=== PATIENT | female | born 1950 | race Caucasian/White ===

== ENCOUNTER 2024-02-09 12:27 | Outpatient (AMB) | payer MEDICARE, SELFPAY ==
--- NOTE | 2024-02-09 12:48 | A.OFFVIS_ITS ---
Vital Signs 02/09/24 12:55 Height 5 ft 3 in Weight 138 lb 2 oz BMI 24.5 BP 118/62 Blood Pressure Location Rt brachial Position Sitting Respiration 16 Pulse 80 Pulse Source Pulse Oximeter Pulse Oximetry (%) 98 Oxygen Delivery Method Room Air Intake Visit Reasons: ENP-Action Tremors ? Parkinson Intake Note: New pt presents to the office for consultation for tremors and suspicion of Parkinson's. Commercial Credit Analyst Required: No Allergies acetaminophen [From Percocet] Allergy (Mild, Verified 02/09/24 12:50) Unknown oxycodone [From Percocet] Allergy (Mild, Verified 02/09/24 12:50) Unknown povidone-iodine [From Betadine] Allergy (Mild, Verified 02/09/24 12:50) Unknown Sulfa (Sulfonamide Antibiotics) Allergy (Mild, Verified 02/09/24 12:50) Unknown HPI Comments Details: 73y/o Right handed female comes for evaluation of tremors. she noticed tremors in her right hand about 1 year ago both at rest and posture. Now she has occasional tremors in her left hand as well. Her tremors are episodic and are worse at night.she has trouble writing, using utensils due to tremors. no problems with dressing showering turning in bed or walking. She loses her balance more than she is used to.No falls. Speech-voice if softer hoarse. she denies drooling she has mild memory issues , mainly short term. she has insomnia sometimes. No vivid dreams. she snores often. Mood- depression - sad most of the time. No suicidal thoughts. she also has anxiety. she has occasional dizziness. Bowel movements are irregular.No hallucination No fh/o parknsons tremors Her mother had dementia at age 98.No h/o head injury No exposure to chemicals [facility] Medical History (Updated 02/09/24 @ 13:32 by Jeane Dimas MD) Hoarseness of voice Coarse tremors Hypersomnia Snoring Back pain Lacunar infarction Hypercholesteremia Hyperlipidemia Seizure Syncope Hypoglycemia Depression GERD (gastroesophageal reflux disease) Anxiety disorder Surgical History History of appendectomy H/O foot surgery H/O lumpectomy Family History Mother Dementia Father CAD (coronary artery disease) Arthritis Daughter Stroke Social History Alcohol intake: current Comment: 1-2 drinks per week Patient Tobacco Use Status: Never used Tobacco Physical Exam Vital Signs: Last Vital Signs Pulse 80 02/09/24 12:55 Resp 16 02/09/24 12:55 BP 118/62 02/09/24 12:55 Pulse Ox 98 02/09/24 12:55 Oxygen Delivery Method Room Air 02/09/24 12:55 BMI result Body Mass Index 24.5 Const General: cooperative, healthy appearing, comfortable, no acute distress and well developed Nutritional Appearance: average body habitus Orientation/consciousness: patient oriented x3 Limitations: no limitations Eyes Pupils: Equal, round and reactive pupils present Neuro Other: mild decreased blink and facial expression No tremors noticed today Mildly decreased FFM lizy and foot taps lizy Tone- normal Gait- mild stoop, good stride and arm swings General: patient oriented x3, tone normal, moves all extremities and no focal motor deficits Cranial nerves: Yes Facial sensation intact/muscles of mastication intact, Yes Equal, round and reactive pupils present, Yes Bilaterally intact EOM present, Yes Nystagmus not present, Yes Normal facial strength present, Yes Midline tongue present, Yes Symmetric palate elevation present, Yes Ability to bilaterally rotate head present and Yes Ability to bilaterally elevate shoulders present Cognition (Neuro): normal cognition Motor exam (neuro): 5/5 motor strength present throughout and Normal motor muscle tone present throughout Deep tendon reflexes (DTR's): Right triceps reflex intensity grade: 2+, Left triceps reflex intensity grade: 2+, Rt Biceps (C5, C6): 2+, Left biceps reflex intensity grade: 2+, Right brachioradialis reflex intensity grade: 2+, Left brachioradialis reflex intensity grade: 2+, Right patellar reflex intensity grade: 3+ and Left patellar reflex intensity grade: 3+ Coordination: [id number] test normal Psych Affect: normal affect Assessment & Plan Assessment & Plan (1) Coarse tremors: Comment: intermittent asymmetrical tremors - rest and action with mild extrapyramidal symptoms Code(s): G25.2 - Other specified forms of tremor Category: Medical (2) Snoring: Code(s): R06.83 - Snoring Category: Medical (3) Hoarseness of voice: Code(s): R49.0 - Dysphonia Category: Medical Plan No signs of parkinsons on todays exam . will monitor her clincially MRI brain to evaluate for vascular causes of her tremors Sleep study to r/o sleep apnea. Orders: Orders MR head/brain wo con Today R25.1 - Tremor, unspecified RT home sleep study Today G47.10 - Hypersomnia, unspecified, R06.83 - Snoring Coding Level of Care Code New Pt Level 4 (35998) Diagnoses Coarse tremors G25.2 Snoring R06.83 Hoarseness of voice R49.0
[2024-02-09 12:55] VITALS: BP 118/62; PULSE 80; RESP 16; O2SAT 98; BMI 24.5
== END 2024-02-09 13:31 | disposition home or self-care (01) ==
PROVIDERS: PCP Internal Medicine; Visit Provider Psychiatry & Neurology Neurology
DX: G25.2 Other specified forms of tremor (principal); R06.83 Snoring; R49.0 Dysphonia
CPT/HCPCS: 99204

== ENCOUNTER → 2024-02-09 12:27 | Outpatient (BNVA) | payer MEDICARE, SELFPAY | PROVIDERS: PCP Internal Medicine; Visit Provider Psychiatry & Neurology Neurology | DX: G25.2 Other specified forms of tremor (principal); R06.83 Snoring; R49.0 Dysphonia | CPT/HCPCS: 99202 ==

== ENCOUNTER 2024-07-14 15:16 | Outpatient (AMB) | payer MEDICARE, SELFPAY ==
--- OUTSIDE RECORDS SUMMARY | 2024-07-14 15:19 | XMS_ITS | Encounter Summary ---
Author Organization [facility] Address [address] [place] [address] Care Team Providers Care Toll Line Inspector Name Role Phone Elma Calhoun MD Primary Care Provider [phone] Reason for Visit * Reason Comments GERD Encounter Details Date Type Department Care Team (Latest Contact Info) Description 07/04/2024 1:00 PM EST Office Visit Gastroenterology - [address] [place] [address] Rosanne Batres, WINDSURFING INSTRUCTOR [address] [place] [place] [id number] Gastroesophageal reflux disease, unspecified whether esophagitis present (Primary Dx) Social History Tobacco Use Types Packs/Day Years Used Date Smoking Tobacco: Never Smokeless Tobacco: Never Alcohol Use Standard Drinks/Week Comments Yes 0 (1 standard drink = 0.6 oz pur e alcohol) Comments Unknown Sex and Gender Information Value Date Recorded Sex Assigned at Not on file Legal Sex Female 2:21 PM EST Gender Identity Not on file Sexual Orientation Not on file documented as of this encounter Last Filed Vital Signs Vital Sign Reading Time Taken Comments Blood Pressure - - Pulse - - Temperature - - Respiratory Rate - - Oxygen Saturation - - Inhaled Oxygen Concentration - - Weight 62 kg (136 lb 9.6 oz) 07/04/2024 1:04 PM EST Height 161.3 cm (5' 3.5 ) 07/04/2024 1:04 PM EST Body Mass Index 23.82 07/04/2024 1:04 PM EST documented in this encounter Ordered Prescriptions Prescription Sig Dispense Quantity Refills Last Filled Start Date End Date pantoprazole (PROTONIX) 40 mg EC tabletIndications: Gastroesophageal reflux disease, unspecified whether esophagitis present Take 1 tablet (40 mg total) by mouth 2 (two) times a day. Do not crush, chew, or split. 60 each 11 07/04/2024 07/04/2025 documented in this encounter Progress Notes * Rosanne Johnson Medardo, WINDSURFING INSTRUCTOR - 07/04/2024 1:00 PM EST CHIEF COMPLAINT: GERD DATE OF LAST ENDOSCOPIC PROCEDURES: 08/2022 UGI negative 02/2019 Colonoscopy 10 yr recall 02/2019 EGD negative HPI: Michelle Whitmore is a 74 y.o. old female who was originally referred to us by Rhea Snow presents to the gastroenterology department today stating my acid reflux is atrocious.. She tells me she has a sore throat all the time. Saw ENT and had negative exam and was told to see us. She has daily heartburn despite taking Omeprazole twice daily. I dont think it works anymore . She does take Aleve 2-3 times a week and drinks lemonaide daily. We discussed a relux diet and I made some suggestions for her. Her weight is stable. Her bowels are regular and she denies rectal bleeding or melena. ROS: GENERAL: No malaise, significant weight loss or fever HEENT: No changes in hearing or vision or swallowing problems RESPIRATORY: No cough, wheezing or shortness of breath CARDIOVASCULAR: No chest pain, leg swelling or palpitations GI: See H&P The remainder of the review of systems is reviewed and negative. PAST MEDICAL HISTORY: GERD IBS Anxiety/depression Hyperlipidemia PAST SURGICAL HISTORY: Foot surgery SOCIAL HISTORY: No tobacco Occas EtOH FAMILY HISTORY: No CRC/ polyps ACTIVE MEDICATIONS: Omeprazole 20mg BID Aleve II approx 3 X weekly Ativan 0,5 prn Zoloft 200mg QD Simvastatin 10mg QD Trazodone 150mg QHS ALLERGIES: Allergies Allergen Reactions Sulfa (Sulfonamide Antibiotics) HIves PHYSICAL EXAM: Visit Vitals Ht 1.613 m (63.5 ) Wt 62 kg (136 lb 9.6 oz) BMI 23.82 kg/m?? Smoking Status Never BSA 1.65 m?? APPEARANCE: Alert and in no acute distress EYES: PERRLA, conjunctiva and sclera normal. HEART: RRR with normal S1 and S2, no murmurs appreciated LUNG: clear to auscultation ABDOMEN: nontender without masses NEURO: Awake, alert and oriented x 3 Assessment & Plan Gastroesophageal reflux disease, unspecified whether esophagitis present Change PPI to Pantoprazole 40mg BID Stop lemonaide OV 4 weeks EGD if no better Orders: pantoprazole (PROTONIX) 40 mg EC tablet; Take 1 tablet (40 mg total) by mouth 2 (two) times a day. Do not crush, chew, or split. I would like to thank Elma Calhoun MD for the opportunity to partake in the patient's care. Board Certified Gastroenterology [facility] [phone] [place] [id number] [email or web address] Rosanne Batres NP documented in this encounter Plan of Treatment Upcoming Encounters Date Type Department Care Team (Late st Contact Info) Description 08/02/2024 11:00 AM EDT Office Visit Gastroenterology - [address] [address] Rosanne Batres NP [address] [place] [address] documented as of this encounter Visit Diagnoses Diagnosis Gastroesophageal reflux disease, unspecified whether esophagitis present- Primary documented in this encounter Care Teams Toll Line Inspector Relationship Specialty Start Date End Date Elma Calhoun MD [address] [place] [id number] PCP - General Internal Medicine 07/10/21 documented as of this encounter
--- OUTSIDE RECORDS SUMMARY | 2024-07-14 15:19 | XMS_ITS | Clinical Summary ---
Author Organization [facility] Address [address] [place] [address] Care Team Providers Care Supervisor Contingents Name Role Phone Elma Calhoun MD Primary Care Provider [phone] Allergies Active Allergy Reactions Criticality Noted Date Comments Sulfa Antibiotics 07/10/2021 Medications Medication Sig Dispensed Refills Start Date End Date Status LORazepam (ATIVAN) 1 MG tablet TAKE 1 TABLET BY MOUTH TWICE DAILY NEEDED FOR ANXIETY. WILL LAST PATIENT FOR 6 MONTHS 0 04/15/2021 Active omeprazole (PriLOSEC) 20 MG capsule 0 07/09/2021 Active Scopolamine (TRANSDERM-SCOP) 1 MG/3DAYS PLACE 1 PATCH BEHIND EAR EVERY 72 HOURS 0 05/09/2021 Active sertraline (ZOLOFT) 100 MG tablet 0 07/09/2021 Active simvastatin (ZOCOR) tablet 5 mg 0 07/09/2021 Active traZODone (DESYREL) 150 MG tablet 0 07/09/2021 Active Active Problems No known active problems Social History Tobacco Use Types Packs/Day Years Used Date Smoking Tobacco: Never Smokeless Tobacco: Never Alcohol Use Standard Drinks/Week Comments Yes 0 (1 standard drink = 0.6 oz pur e alcohol) Sex and Gender Information Value Date Recorded Sex Assigned at Female 07/10/2021 9:48 AM EST Gender Identity Female 07/10/2021 9:48 AM EST Sexual Orientation Not on file Job Start Date Occupation Industry Not on file Not on file Not on file Last Filed Vital Signs Vital Sign Reading Time Taken Comments Blood Pressure - - Pulse - - Temperature - - Respiratory Rate - - Oxygen Saturation - - Inhaled Oxygen Concentration - - Weight 60.3 kg (133 lb) 07/10/2021 9:44 AM EST Height 162.6 cm (5' 4 ) 07/10/2021 9:44 AM EST Body Mass Index 22.83 07/10/2021 9:44 AM EST Plan of Treatment Health Maintenance Due Date Last Done Comments Hepatitis C Screening 1950 COVID-19 Vaccine (#1) 1950 Depression Screening 1962 Preventative Health Evaluation 1968 DTap / Tdap / Td (1 - Tdap) 1969 Colon Cancer Screening (Colonoscopy) 1995 Breast Cancer Screening (Mammogram) 2000 Shingrix-Zoster Vaccine (1 of 2) 2000 Fall Risk Assessment 2015 Osteoporosis Screening (DEXA Scan) 2015 Pneumococcal Vaccine (1 of 1 - PCV) 2015 Influenza Vaccine (#1) 2024 RSV Adult > 60+ Yrs or Pregn ant (1 - 1-dose 75+ series) 2025 Hepatitis B Vaccines Aged Out No long er eligible based on patient's age to complete this topic RSV Ped < 20 months Aged Out No longe r eligible based on patient's age to complete this topic Care Teams Supervisor Contingents Relationship Specialty Start Date End Date Elma Calhoun MD [address] [address] PCP - General Internal Medicine 07/10/21
--- OUTSIDE RECORDS SUMMARY | 2024-07-14 15:19 | XMS_ITS | Clinical Summary ---
Author Organization [facility] [address] [facility] Address [address] [place] [address] Phone Care Team Providers Care Cognos Administrator Name Role Phone Elma Calhoun MD Primary Care Provider [phone] Allergies Active Allergy Reactions Criticality Noted Date Comments Sulfa (Sulfonamide Antibiotics) 07/23 HIves Medications traZODone (DESYREL) 150 mg tablet Take 1 tablet (150 mg total) by mouth at bedtime. 0 Active simvastatin (ZOCOR) 10 mg tablet Take 1 tablet (10 mg total) by mouth at bedtime. 9 Active omeprazole (PriLOSEC) [address] capsule Take 1 capsule (20 mg total) by mouth 2 (two) times a day. 9 Active LORazepam (ATIVAN) 0.5 mg tablet Sig: TAKE 1 TABLET BY MOUTH TWICE A DAY Notes to Pharmacy: This request is for a new prescription for a controlled substance as required by Federal/State law. 9 Active sertraline (ZOLOFT) 100 mg tablet Take 2 tablets (200 mg total) by mouth 1 (one) time each day. 9 Active simvastatin (ZOCOR) 5 mg tablet Take 5 mg by mouth daily. Active pantoprazole (PROTONIX) 40 mg EC tabletIndicatio ns:Gastroesopha geal reflux disease, unspecified whether esophagitis present Take 1 tablet (40 mg total) by mouth 2 (two) times a day. Do not crush, chew, or split. 60 each 11 07/04/19 26 Active Active Problems Problem Noted Date Diagnosed Date Anxiety 08/16/2018 Gastroesophageal reflux disease without esophagi tis 08/16/2018 Pure hypercholesterolemia 08/16/2018 Encounters Date Type Department Care Team Description 07/04/2024 1:00 PM EST Office Visit Gastroenterology - [address] [place] [phone] Rosanne Batres NP Gastroesophageal reflux disease, unspecified whether esophagitis present (Primary Dx) from Last 3 Months Surgical History Surgery Date Site/Laterality Comments FOOT SURGERY PROCEDURE:FOOT SURGERY Social History Tobacco Use Types Packs/Day Years Used Date Smoking Tobacco: Never Smokeless Tobacco: Never Alcohol Use Standard Drinks/Week Comments Yes 0 (1 standard drink = 0.6 oz pur e alcohol) Comments Unknown Sex and Gender Information Value Date Recorded Sex Assigned at Not on file Legal Sex Female 2:21 PM EST Gender Identity Not on file Sexual Orientation Not on file Obstetrics History Last Filed Vital Signs Vital Sign Reading Time Taken Comments Blood Pressure - - Pulse - - Temperature - - Respiratory Rate - - Oxygen Saturation - - Inhaled Oxygen Concentration - - Weight 62 kg (136 lb 9.6 oz) 07/04/2024 1:04 PM EST Height 161.3 cm (5' 3.5 ) 07/04/2024 1:04 PM EST Body Mass Index 23.82 07/04/2024 1:04 PM EST Plan of Treatment Upcoming Encounters Date Type Department Care Team (Late st Contact Info) Description 08/02/2024 11:00 AM EDT Office Visit Gastroenterology - [address] [place] [phone] Rosanne Batres NP [address] [place] [address] Health Maintenance Due Date Last Done Comments Zoster Vaccines (2 of 2) 03/31/2018 02/03/2018 Breast Cancer Screening 11/29/2020 11/29/2018, 11/22 Depression Screening 04/22/2022 Falls Risk Assessment 04/22/2022 Hepatitis C Screening 04/22/2022 Medicare Annual Wellness Visit 04/22/2022 Osteoporosis Screening (Bone Density Screening) 04/22/2022 Social Influencers of Health Screening 04/22/2022 Cholesterol Screening (Lipid Panel) 08/17/2023 08/16/2018 Colorectal Cancer Screening: Colonoscopy 02/23/2029 02/23/2019, 02/23/2019 DTaP,Tdap,and Td Vaccines (2 - Td or Tdap) 07/07/2033 07/07/2023 Pneumococcal Vaccine: 50+ Years Completed 07/07/2023, 06/21/2019 RSV Immunization Patients 60+ Years Old Completed 08/12/2023 COVID-19 Vaccine Completed 01/31/2024, , 02/09/2022, Additional history exists Influenza Vaccine Completed 03/01/2024, , 03/04/2022, Additional history exists HIB Vaccines Aged Out No longer eligi ble based on patient's age to complete this topic HPV Vaccines Aged Out No longer eligi ble based on patient's age to complete this topic Hepatitis A Vaccines Aged Out No long er eligible based on patient's age to complete this topic Hepatitis B Vaccines Aged Out No long er eligible based on patient's age to complete this topic IPV Vaccines Aged Out No longer eligi ble based on patient's age to complete this topic MMR Vaccines Aged Out No longer eligi ble based on patient's age to complete this topic Meningococcal ACWY Vaccine Aged Out N o longer eligible based on patient's age to complete this topic Meningococcal B Vacine Aged Out No lo nger eligible based on patient's age to complete this topic RSV Immunization Patients Under 20 months Aged Out No longer eligible based on patient's age to complete this topic Varicella Vaccines Aged Out No longer eligible based on patient's age to complete this topic Procedures Procedure Name Priority Date/Time Associated Diagnosis Comments COLONOSCOPY Routine 02/23/2019 [facility] SCREENING DIGITAL Routine 11/29/2018 11:14 AM EDT Encounter for screening mammogram for malignant neoplasm of breast LIPID PANEL Routine 08/16/2018 from Last 3 Months or Most Recently Relevant to Health Maintenance Results * Colonoscopy (02/23/2019) HM Colonoscopy abnormal, abstracted Anatomical Region Laterality Modality Other us Historical Provider HEALTH MAINTENANCE Final Result * [facility] SCREENING DIGITAL (11/29/2018 11:14 AM EDT) Anatomical Region Laterality Modality Mammography 11/29/2018 8:55 AM EDT Narrative 11/29/2018 11:14 AM EDT [facility] Diagnostic Imaging Department [address] [place], [place] [id number] Patient: ??MICHELLE WHITMORE ?/Age/Sex: 1950 - 68 - F Unit#: ??[id number] ? Location/Status: ??SPDIMAM/REG CLI ? Mnemonic/Ordering Site: ??DIGSC/SPMAM Ordering Physician: ??DUSTIN ROJO MD [facility] Screening Digital - 11/29/[address]12 EXAM: [facility] Screening Digital EXAM DATE AND TIME: 11/29/2018 9:14 AM HISTORY: ??Screening. Excisional biopsy of the left breast in 1993, pathology benign. Paternal grandmother had breast carcinoma. COMPARISON: ??11/26/17 (right), 11/22/17, 11/19/16, 02/13/15, 11/10/13 TECHNIQUE: CC and MLO views of both breasts were obtained using full field digital mammography. Bilateral digital breast tomosynthesis was performed in the MLO projection. Computer aided detection with the [employer] 7.2-H was employed. TISSUE DENSITY: b. There are scattered areas of fibroglandular density. FINDINGS: Minimal asymmetry and architectural distortion are seen in the posterior 10:00 position of the left breast, unchanged, consistent with surgical scar. No suspicious masses or grouped microcalcifications are seen. Dermal and vascular calcification is again noted. IMPRESSION: Stable mammographic appearance of the breasts. ??No evidence of malignancy is seen. A negative mammogram in the presence of a clinically suspicious palpable abnormality does not preclude the possibility of malignancy or alter the indications for biopsy. BI-RADS: ??Category 2: Benign RECOMMENDATION(S): 1: Routine screening mammogram BILATERAL in 1 year. 79846, 82114 3342F, 7065F Dictating Physician: ??VIOLA NICHOLS MD Electronically Signed by: ??VIOLA NICHOLS MD Dic Date/Time: ??11/29/18 1113 Sign date/Time: ??11/29/18 1114 Procedure Note Viloa Nichols - 05/13/2022 [facility] Diagnostic Imaging Department [address] [place] [address] Patient: MICHELLE WHITMORE/Age/Sex: 1950 - 68 - F Unit#: [id number] Location/Status: SPDIMAM/REG CLI Mnemonic/Ordering Site: [facility] Ordering Physician: DUSTIN ROJO MD [facility] Screening Digital - 11/29/18 - 912 EXAM: [facility] Screening Digital EXAM DATE AND TIME: 11/29/2018 9:14 AM HISTORY: Screening. Excisional biopsy of the left breast in 1993,pathology benign. Paternal grandmother had breast carcinoma. COMPARISON: 11/26/17 (right), 11/22/17, 11/19/16, 02/13/15, 11/10/13 TECHNIQUE: CC and MLO views of both breasts were obtained using fullfield digital mammography. Bilateral digital breast tomosynthesis was performedin the MLO projection. Computer aided detection with the [employer] 7.2[employer] Technology[employer] employed. TISSUE DENSITY: b. There are scattered areas of fibroglandular density. FINDINGS: Minimal asymmetry and architectural distortion are seen in the [id number] position of the left breast, unchanged, consistent with surgical scar. No suspicious masses or grouped microcalcifications are seen. Dermal and vascular calcification is again noted. IMPRESSION: Stable mammographic appearance of the breasts. No evidence of malignancyis seen. A negative mammogram in the presence of a clinically suspicious palpable abnormality does not preclude the possibility of malignancy or alter the indications for biopsy. BI-RADS: Category 2: Benign RECOMMENDATION(S): 1: Routine screening mammogram BILATERAL in 1 year. [id number], [address]323 3342F, 7025F Dictating Physician: VIOLA NICHOLS MD Electronically Signed by: VIOLA NICHOLS MD Dic Date/Time: 11/29/18 1113 Sign date/Time: 11/29/18 1114 Dustin Rojo MD IMG BI PROCEDURES Final Result * (ABNORMAL) Lipid panel (08/16/2018) LDL/HDL Ratio 3 0 - 4 Triglycerides 90 0 - 150 mg/dL Cholesterol 209(A) 0 - 200 mg/dL HDL 76 >=40 mg/dL LDL Cholesterol 115(A) 0 - 100 mg/dL Blood Venous blood specimen / Unknown Historical Provider LAB BLOOD ORDERABLES Sally l Result from Last 3 Months or Most Recently Relevant to Health Maintenance Insurance MEDICARE [facility] Care Teams Cognos Administrator Relationship Specialty Start Date End Date Elma Calhoun MD [address] [place] [address] [place] [address] PCP - General Internal Medicine 07/10/21
--- OUTSIDE RECORDS SUMMARY | 2024-07-14 15:19 | XMS_ITS | Data Portability ---
Author Organization [place] - [facility], Allergy Address [address] [address] Care Team Providers Care Barge Worker Name Role Phone MIREYA LIANG Primary Care Provider Assessment Encounter Date Assessment Date Assessment LastModified by Organization Details LastModified Time 06/16/2024 06/16/2024 74-year-old female presents for evaluation of hoarseness. Flexible laryngoscopy was obtained today and is most consistent with reflux with some muscle tension. I have discussed that reflux is likely the root of her irritation and hoarseness. As she continues to have breakthrough reflux despite twice daily omeprazole would recommend follow-up with GI. We also discussed voice therapy for muscle tension and she is interested in pursuing this option. Referral will be made. Follow-up here as needed. sherie Not available 06/16/2024 14:10:32 Plan of Treatment Reminders Order Date Submit Date Provider Last Modified By Organization Details Last Modified Time Details Appointments None recorded . Lab None recorded . Referral speech language patholog ist referral 2024 025 [facility], [address] [facility], [place], [address], 13:42:34 Procedures None recorded . Surgeries None recorded . Imaging None recorded . Medication Orders None recorded . Patient TargetsNo targets recorded. Patient InstructionsNo instructions recorded. Reason for Referral Speech Language Pathologist Referral for Chronic hoarseness Referring Physician: Cindy Loredo, Otolaryngology, Encounter Date: 06/16/2024 Problems Name Problem SNOMED Code Status Onset Date Resolution Date Notes Provider Name and Address Organization Details Recorded Time Chronic rhinitis 94824690 Active 2021 Obstructi ve rhinitis (chronic) ; Note: Date Diagnosed : 2 3:28 PM (J31.0) Not Available [facility] 4 02:55:57 Sensorine ural hearing loss of bilateral ears 940590586 Active 2021 Sensorine ural hearing loss, bilateral ; Note: Date Diagnosed : 2 3:51 PM (H90.3) Not Available [facility] 4 02:55:58 Allergic rhinitis caused by pollen 12327236 Active 2021 Allergic rhinitis due to pollen; Note: Date Diagnosed : 2 3:28 PM (J30.1) Not Available [facility] 4 02:55:57 Sudden idiopathi c hearing loss 921536900 Active 2017 Sudden idiopathi c hearing loss, left ear; Note: Date Diagnosed : 11/11/2017 12:13 PM (H91.22) Not Available [facility] 4 02:55:57 Chronic hoarsenes s 09541001811 05 Active 2024 CINDY LOREDO PA-C [address] [place] [address],[place] [address], [place], [address] , [facility] 5 14:10:42 Gastroeso phageal reflux disease without esophagit is 621646499 Active 2024 CINDY LOREDO PA-C [address] [place] [address], [facility] [place], [address] , [facility] 5 14:10:49 Problem Notes None recorded. Procedures Surgical History Date Name Laterality Status Provider Name and Address Organization Details Recorded Time 06/16/2024 FOL_Reflux _JMS completed CINDY LOREDO PA-C [address] [place] [address],[place] [address], [place], [address], [facility] 06/16/2024 14:09:40 Imaging Results None recorded. Procedure Notes None recorded. Medical Equipment None Reported. Allergies Allergen ID Allergen Name Allergen Category Reaction Reaction Severity Criticality Documentation Date Start Date Code Code System Note Provider Name and Address Organization Details Recorded Time 056641 Substance with sulfonami de structure and antibacte rial mechanism of action (substanc e) medicatio n other Not available Not available 10/05/2023 10752 8003 SNOMED React ion: unkno wn, unspe cifie d;; Not Available [facility] 4 01:19:30 Medications Name Sig Start Date Stop Date Status Note LastModified by Organization Details LastModified Time amoxicilli n 500 mg capsule TAKE 1 CAPSULE BY MOUTH 3 TIMES A DAY UNTIL GONE active Not Available Not Available No t Available prednisone 10 mg tablet 2017 active Medicatio n ID: [id number] Pr escribed By Name: Lili Tomas, CAMILA-[place] Bran d Name: prednison e Send Method: E-Prescri bed Subs Allowed: subs OK Specia l Instructi on: 6 tabs daily for 9 days then taper As directed Medicatio nGenericN ann-marie: prednison e Not Available Not Available Not Available valacyclov ir 1 gram tablet TAKE 1 TABLET BY MOUTH 3 TIMES A DAY FOR 7 DAYS active Not Available Not Available No t Available betamethas one, augmented 0.05 % topical cream PLEASE SEE ATTACHED FOR DETAILED DIRECTION S active Not Available Not Available No t Available sertraline 100 mg tablet TAKE 1 TABLET BY MOUTH TWICE A DAY active Not Available Not Available No t Available simvastati n 10 mg tablet TAKE 1 TABLET BY MOUTH EVERYDAY AT BEDTIME active Not Available Not Available No t Available trazodone 100 mg tablet TAKE 2 TABLETS BY MOUTH EVERY DAY AT BEDTIME active Not Available Not Available No t Available simvastati n 5 mg tablet TAKE 1 TABLET BY MOUTH EVERYDAY AT BEDTIME active Not Available Not Available No t Available cephalexin 500 mg capsule TAKE 1 CAPSULE BY MOUTH 4 TIMES A DAY FOR 7 DAYS active Not Available Not Available No t Available trazodone 150 mg tablet TAKE 1 TABLET BY MOUTH EVERYDAY AT BEDTIME active Not Available Not Available No t Available oseltamivi r 75 mg capsule TAKE 1 CAPSULE BY MOUTH TWICE A DAY FOR 5 DAYS active Not Available Not Available No t Available omeprazole 20 mg capsule,de layed release TAKE 1 CAPSULE BY MOUTH TWICE A DAY active Not Available Not Available No t Available lorazepam 1 mg tablet TAKE 1 TABLET DAILY AT BEDTIME NEEDED FOR INSOMNIA AND ANXIETY active Not Available Not Available No t Available ibuprofen 600 mg tablet TAKE 1 TABLET 4 TIMES A DAY WITH MEALS NEEDED active Not Available Not Available No t Available ipratropiu m bromide 21 mcg (0.03 %) nasal spray USE 1 SPRAY IN EACH NOSTRIL DAILY AT BEDTIME X 14 DAYS NEEDED FOR NASAL CONGESTIO N active Not Available Not Available No t Available oxycodone 5 mg tablet TAKE 1 TABLET EVERY 6 HOURS NEEDED FOR BREAKTHRO UGH PAIN. active Not Available Not Available No t Available chlorhexid ine gluconate 0.12 % mouthwash RINSE MOUTH WITH 15ML (1 CAPFUL) FOR 30 SECONDS IN MORNING AND EVENING AFTER BRUSHING, THEN SPIT active Not Available Not Available No t Available Nurtec ODT 75 mg disintegra ting tablet TAKE 1 TABLET ONCE NEEDED FOR MIGRAINE HEADACHE active Not Available Not Available No t Available Vitals None Recorded Social History None recorded. Functional Status None recorded. Mental Status None recorded. Family History Nothing Reported. Medical History No medical history recorded. Gynecological HistoryNo gynecological history recorded. Obstetrics History GPAL:G 0 P 0 0 0 0 Past Encounters Encounter ID Performer Location Encounter Start Date Encounter Closed Date Diagnosis/Indication Diagnosis SNOMED-CT Code Diagnosis ICD10 Code Diagnosis Note [id number] SHAMA HOLT MD [facility] [address] [address] 06/16/2024 13:23:26 06/16/2024 13:46:55 Chronic hoarseness 8626435516 105 R49.0 Gastroesop hageal reflux disease without esophagitis 950570522 K21.9 Health Concerns Section Related Observation LastModified by Organization Detai ls LastModified Time None Recorded Concern Status LastModified by Organization Details LastModified Time None Recorded Advance Directives Directive None Recorded Payers Encounter Date Sequence Insurance Name Policy Number Policy Key Covered Member ID Key Member ID Guarantor Name 06/16/2024 1 [place] Michelle Whitmore [id number] Michelle Whitmore 06/16/2024 2 [place] [id number] Michelle Whitmore [id number] Michelle Whitmore Notes Date Note Type Note Provider Name and Address Organization Details Recorded Time 06/16/2024 text/html 74-year-old lópez thompson presents for evaluation of hoarseness. She has been having worsening hoarseness over the last 6 months to a year. She does not have sore throat but does feel some irritation with swallowing. It seems as though food gets stuck in her lower throat. No history of tobacco use and no hemoptysis. Denies weight loss. Does have significant reflux. She takes omeprazole 20 mg twice daily but continues to have breakthrough symptoms. She reports coughing which is worse at night and nonproductive. Is seen regularly by GI and has had endoscopy. SHAMA AGUIRRE MD [address] [place] [address], [address], [facility] - [facility] 06/16/2024 15:47:32 OBGyn Episode No OBEpisode recorded.
--- OUTSIDE RECORDS SUMMARY | 2024-07-14 15:20 | XMS_ITS | Continuity of Care Document ---
Author Organization [place] - [facility], [facility] Address [address] [place] [address] Care Team Providers Care Dance Hall Host/Hostess Name Role Phone MIREYA LIANG Primary Care [...] speech language patholog ist referral 2024 025 [facility], [address] [place], [address], 13:42:34 Procedures None recorded . Surgeries None [...] Address Organization Details Recorded Time Chronic rhinitis 94344107 Active 2021 Obstructi ve rhinitis (chronic) ; Note: Date Diagnosed : 2 3:28 PM (J31.0) Not Available [facility] 4 02:55:57 Sensorine ural hearing loss of bilateral ears 601300054 Active 2021 Sensorine ural hearing loss, bilateral ; Note: Date Diagnosed : 2 3:51 PM (H90.3) Not Available [facility] 4 02:55:58 Allergic rhinitis caused by pollen 74484812 Active 2021 Allergic rhinitis due to pollen; Note: Date Diagnosed : 2 3:28 PM (J30.1) Not Available [facility] 4 02:55:57 Sudden idiopathi c hearing loss 569984970 Active 2017 Sudden idiopathi c hearing loss, left ear; Note: Date Diagnosed : 11/11/2017 12:13 PM (H91.22) Not Available [facility] 4 02:55:57 Chronic hoarsenes s 03802809488 05 Active 2024 CINDY LOREDO PA-C [address] [place] [address], [place], [address] , [facility] 5 14:10:42 Gastroeso phageal reflux disease without esophagit is 247296423 Active 2024 CINDY LOREDO PA-C [address] [place] [address],[place] [address], [place], [address] , [facility] 5 14:10:49 Problem Notes None recorded. Procedures Surgical History Date Name Laterality Status Provider Name and Address Organization Details Recorded Time 06/16/2024 FOL_Reflux _JMS completed CINDY LOREDO PA-C [address] [place] [address],[place] [address], [place], [address], [facility] 06/16/2024 14:09:40 Imaging Results None recorded. Procedure Notes None recorded. Medical Equipment None Reported. Allergies Allergen ID Allergen Name Allergen Category Reaction Reaction Severity Criticality Documentation Date Start Date Code Code System Note Provider Name and Address Organization Details Recorded Time 964415 Substance with sulfonami de structure and antibacte rial mechanism of action (substanc e) medicatio n other Not available Not available 10/05/2023 96137 8003 SNOMED React ion: unkno wn, unspe cifie d;; Not Available [facility] 4 01:19:30 Medications Name Sig Start Date Stop Date Status Note LastModified by Organization Details LastModified Time amoxicilli n 500 mg capsule TAKE 1 CAPSULE BY MOUTH 3 TIMES A DAY UNTIL GONE active Not Available Not Available No t Available prednisone 10 mg tablet 2017 active Medicatio n ID: [id number] Pr escribed By Name: Lili Tomas, MARY [place] Name: prednison e Send Method: E-Prescri bed Subs Allowed: subs OK Specia l Instructi on: 6 tabs daily for 9 days then taper As directed Medicatio nGeneraaronN ann-marie: prednison e Not Available Not Available [...] SNOMED-CT Code Diagnosis ICD10 Code Diagnosis Note [id number] SHAMA HOLT MD [facility] [address] [address] 06/16/2024 13:23:26 06/16/2024 13:46:55 Chronic hoarseness 4432160656 105 R49.0 Gastroesop hageal reflux disease without esophagitis 516553427 K21.9 Health Concerns Section Related Observation LastModified by Organization Detai ls LastModified Time None Recorded Concern Status LastModified by Organization Details LastModified Time None Recorded Payers Encounter Date Sequence Insurance Name Policy Number Policy Key Covered Member ID Key Member ID Guarantor Name 06/16/2024 1 [place] Michelle Whitmore [id number] Michelle Whitmore 06/16/2024 2 [place] [id number] Michelle Whitmore [id number] Michelle Whitmore Notes Date Note Type [...] and has had endoscopy. SHAMA AGUIRRE MD [address] [place] [address], [address], [facility] - [facility] 06/16/2024 15:47:32 OBGyn Episode No OBEpisode recorded.
--- NOTE | 2024-07-14 15:21 | A.OFFVIS_ITS ---
Vital Signs 07/14/24 15:23 Height 5 ft 3 in Weight 134 lb BMI 23.7 Pulse 68 Pulse Source Pulse Oximeter Pulse Oximetry (%) 99 Oxygen Delivery Method Room Air Intake Visit Reasons: f/u Tremors/Parkinson's Intake Note: Patient following up for sleep study no showed, [facility] Allergies acetaminophen [From Percocet] Allergy (Mild, Verified 07/14/24 15:24) Unknown oxycodone [From Percocet] Allergy (Mild, Verified 07/14/24 15:24) Unknown povidone-iodine [From Betadine] Allergy (Mild, Verified 07/14/24 15:24) Unknown Sulfa (Sulfonamide Antibiotics) Allergy (Mild, Verified 07/14/24 15:24) Unknown Medication List - Last Reconciled 07/14/24 by Jeane Dimas MD ipratropium bromide 2 sprays intranasal BID lorazepam 1 mg PO DAILY PRN lorazepam 0.5 mg PO BID PRN omeprazole 20 mg PO DAILY rimegepant (Nurtec ODT) 75 mg PO Q OTHER DAY sertraline 200 mg PO DAILY simvastatin 5 mg PO DAILY trazodone 200 mg PO DAILY HPI Comments Details: 74y/o Right handed female comes for F/u of tremors.she is accompanied by her sister who says there has been a lot of stress in the family - lost her and her parents close to each other. Her sister feels she has not dealt with her grief. she noticed tremors in her right hand about 2 years ago both at rest and posture. Her tremors are worse and bilateral . It is present with posture and rest. she has trouble writing, using utensils due to tremors. no problems with dressing showering turning in bed or walking. She loses her balance more than she is used to.No falls. Speech-voice if softer hoarse. she denies drooling she has mild memory issues , mainly short term. she has insomnia sometimes. No vivid dreams. she snores often. Mood- depression - sad most of the time. No suicidal thoughts. she also has anxiety. she has occasional dizziness. Bowel movements are irregular.No hallucination No fh/o parknsons tremors Her mother had dementia at age 98.No h/o head injury No exposure to chemicals [facility] Medical History Hoarseness of voice Coarse tremors Hypersomnia Snoring Back pain Lacunar infarction Hypercholesteremia Hyperlipidemia Seizure Syncope Hypoglycemia Depression GERD (gastroesophageal reflux disease) Anxiety disorder Surgical History History of appendectomy H/O foot surgery H/O lumpectomy Family History Mother Dementia Father CAD (coronary artery disease) Arthritis Daughter Stroke Social History Alcohol intake: current Comment: 1-2 drinks per week Patient Tobacco Use Status: Never used Tobacco Physical Exam Vital Signs: Last Vital Signs Pulse 68 07/14/24 15:23 Pulse Ox 99 07/14/24 15:23 Oxygen Delivery Method Room Air 07/14/24 15:23 BMI result Body Mass Index 23.7 Const General: cooperative, healthy appearing, comfortable, no acute distress and well developed Nutritional Appearance: average body habitus Orientation/consciousness: patient oriented x3 Limitations: no limitations Neuro Other: mild decreased blink and facial expression No tremors noticed today Mildly decreased FFM lizy and foot taps lizy Tone- normal Gait- mild stoop, good stride and arm swings General: patient oriented x3, tone normal, moves all extremities and no focal motor deficits Cognition (Neuro): normal cognition Motor exam (neuro): 5/5 motor strength present throughout and Normal motor muscle tone present throughout Deep tendon reflexes (DTR's): Right triceps reflex intensity grade: 3+, Left triceps reflex intensity grade: 3+, Rt Biceps (C5, C6): 3+, Left biceps reflex intensity grade: 3+, Right brachioradialis reflex intensity grade: 3+, Left brachioradialis reflex intensity grade: 3+, Right patellar reflex intensity grade: 3+ and Left patellar reflex intensity grade: 3+ Coordination: [id number] test normal Psych Affect: Sad affect present Assessment & Plan Assessment & Plan (1) Coarse tremors: Comment: intermittent asymmetrical tremors - rest and action with mild extrapyramidal symptoms Code(s): G25.2 - Other specified forms of tremor Category: Medical (2) Hoarseness of voice: Code(s): R49.0 - Dysphonia Category: Medical Plan MRI brain results reviewed OLIVIA scan Psychology eval for poorly controlled mood Sleep study to r/o sleep apnea. C spine X ray Orders: Orders DaTscan Today G25.2 - Other specified forms of tremor XR cervical spine 2V Today M54.2 - Cervicalgia Referrals Psychology Referral F41.9 - Anxiety disorder, unspecified Coding Level of Care Code Est Pt Level 4 (36529) Complex EM visit Add On G2211 Diagnoses Coarse tremors G25.2 Hoarseness of voice R49.0
[2024-07-14 15:23] VITALS: PULSE 68; O2SAT 99; BMI 23.7
== END 2024-07-14 16:08 | disposition home or self-care (01) ==
PROVIDERS: PCP Internal Medicine; Visit Provider Psychiatry & Neurology Neurology
DX: G25.2 Other specified forms of tremor (principal); R49.0 Dysphonia
CPT/HCPCS: 99214; G2211

== ENCOUNTER → 2024-07-14 15:16 | Outpatient (BNVA) | payer MEDICARE, SELFPAY | PROVIDERS: PCP Internal Medicine; Visit Provider Psychiatry & Neurology Neurology | DX: G25.2 Other specified forms of tremor (principal); R49.0 Dysphonia | CPT/HCPCS: 99212 ==

== ENCOUNTER 2024-12-27 09:43 | Outpatient (AMB) | payer MEDICARE, SELFPAY ==
[2024-12-27 09:57] VITALS: BP 120/82; PULSE 73; O2SAT 97
--- NOTE | 2024-12-27 09:57 | A.OFFVIS_ITS ---
Vital Signs 12/27/24 09:57 Height 5 ft 3 in BP 120/82 Blood Pressure Location Rt brachial Position Sitting Pulse 73 Pulse Source Pulse Oximeter Pulse Oximetry (%) 97 Oxygen Delivery Method Room Air Intake Visit Reasons: f/u appt Hair Spinner Required: No Accompanied by: Self / Same As Patient Allergies acetaminophen (From Percocet) Allergy (Mild, Verified 12/27/24 10:01) Unknown oxycodone (From Percocet) Allergy (Mild, Verified 12/27/24 10:01) Unknown povidone-iodine (From Betadine) Allergy (Mild, Verified 12/27/24 10:01) Unknown Sulfa (Sulfonamide Antibiotics) Allergy (Mild, Verified 12/27/24 10:01) Unknown Medication List - Last Reconciled 12/27/24 by Jeane Dimas MD lorazepam 1 mg PO DAILY PRN lorazepam 0.5 mg PO BID PRN magnesium oxide 500 mg PO BID omeprazole 20 mg PO DAILY rimegepant (Nurtec ODT) 75 mg PO Q OTHER DAY sertraline 200 mg PO DAILY simvastatin 10 mg PO DAILY trazodone 200 mg PO DAILY HPI Comments Details: 74y/o Right handed female comes for F/u of tremors.she is accompanied by her sister.- The patient lost her this year, niece, and parents . she is doing good, her mood is better - she is seeing a therapist and also cut down on caffiene.The tremors have decreased significantly . she has occasional mild tremors now. she is sleeping better. Her cognition has improved - her sister says that she is back to baseline. MRI- mild white matter changes OLIVIA scan - negative C spine X Ray - spondylosis She reports headaches - right eye , with light sensitivty , pressure and pain. she has fh/o migraines. she takes nurtec - takes a long time.she has 4 migraines a week and last few hrs she was seen by opthal . No aura she has h/o ocular migraines History from last visit- she noticed tremors in her right hand about 2 years ago both at rest and posture. Her tremors are worse and bilateral . It is present with posture and rest. she has trouble writing, using utensils due to tremors. no problems with dressing showering turning in bed or walking. She loses her balance more than she is used to.No falls. Speech-voice if softer hoarse. she denies drooling she has mild memory issues , mainly short term. she has insomnia sometimes. No vivid dreams. she snores often. Mood- depression - sad most of the time. No suicidal thoughts. she also has anxiety. she has occasional dizziness. Bowel movements are irregular.No hallucination No fh/o parknsons tremors Her mother had dementia at age 98.No h/o head injury No exposure to chemicals [facility] Medical History (Updated 12/27/24 @ 10:30 by Jeane Dimas MD) Migraine Neck pain Anxiety Hoarseness of voice Coarse tremors Hypersomnia Snoring Back pain Lacunar infarction Hypercholesteremia Hyperlipidemia Seizure Syncope Hypoglycemia Depression GERD (gastroesophageal reflux disease) Anxiety disorder Surgical History History of appendectomy H/O foot surgery H/O lumpectomy Family History Mother Dementia Father CAD (coronary artery disease) Arthritis Daughter Stroke Social History Alcohol intake: current Comment: 1-2 drinks per week Patient Tobacco Use Status: Never used Tobacco Physical Exam Vital Signs: Last Vital Signs Pulse 73 12/27/24 09:57 BP 120/82 12/27/24 09:57 Pulse Ox 97 12/27/24 09:57 Oxygen Delivery Method Room Air 12/27/24 09:57 Const General: cooperative, healthy appearing, comfortable, no acute distress and well developed Nutritional Appearance: average body habitus Orientation/consciousness: patient oriented x3 Limitations: no limitations Neuro Other: No tremors noticed today Tone- normal Gait- mild stoop, good stride and arm swings General: patient oriented x3, tone normal, moves all extremities and no focal motor deficits Cognition (Neuro): normal cognition Motor exam (neuro): 5/5 motor strength present throughout and Normal motor muscle tone present throughout Coordination: [id number] test normal Assessment & Plan Assessment & Plan (1) Coarse tremors: Comment: resolved - likley related to poorly controlled mood OLIVIA- negative Code(s): G25.2 - Other specified forms of tremor Category: Medical (2) Migraine: Code(s): G43.909 - Migraine, unspecified, not intractable, without status migrainosus Category: Medical Qualifiers: Intractability: not intractable Migraine type: migraine (< 15 days per month) without aura Status migrainosus presence: without status migrainosus Qualified Code(s): G43.009 - Migraine without aura, not intractable, without status migrainosus (3) Hoarseness of voice: Code(s): R49.0 - Dysphonia Category: Medical Plan MRI brain results reviewed OLIVIA scan reviewed F/u psychologist Nurtec 75 mg as need PT for neck - myofasciall release- will consider adding a preventive med for migraine if she does not improve with PT> C spine X ray Orders: Orders PT Evaluation and Treatment Today M54.2 - Cervicalgia Coding Level of Care Code Est Pt Level 4 (30023) Complex EM visit Add On G2211 Diagnoses Coarse tremors G25.2 Migraine without aura and without status migrainosus, not intractable G43.009 Intractability: not intractable Migraine type: migraine (< 15 days per month) without aura Status migrainosus presence: without status migrainosus Hoarseness of voice R49.0
--- OUTSIDE RECORDS SUMMARY | 2024-12-27 10:08 | XMS_ITS | Clinical Summary ---
Author Organization [facility] Address [address] [place] [address] Care Team Providers Care Line Construction Supervisor Name Role Phone Elma Calhoun MD Primary Care Provider + [phone] Allergies Active Allergy Reactions Criticality Noted Date [...] 1 - PCV) 2015 Influenza Vaccine (#1) 2025 RSV Adult > 60+ Yrs or Pregn ant (1 - 1-dose 75+ series) 2025 Hepatitis B Vaccines Aged Out No long er eligible based on patient's age to complete this topic RSV Ped < 20 months Aged Out No longe r eligible based on patient's age to complete this topic Care Teams Line Construction Supervisor Relationship Specialty Start Date End Date Elma Calhoun MD [address] [address] PCP - General Internal Medicine 07/10/21
--- OUTSIDE RECORDS SUMMARY | 2024-12-27 10:08 | XMS_ITS ---
Author Name [facility] Organization Unknown History of Medication Use Medication Directions Dispensed Refills Start Date End Date Stat us aspirin 325 mg tablet Take 1 tablet every day by oral route for 30 days. 12/07/2024 active Tylenol Extra Strength 500 mg tablet Take 2 tablets 3 times a day by oral route. 12/07/2024 active betamethasone, augmented 0.05 % topical cream PLEASE SEE ATTACHED FOR DETAILED DIRECTIONS active ibuprofen 600 mg tablet TAKE 1 TABLET BY MOUTH EVERY 6 HOURS active lorazepam 1 mg tablet TAKE 1 TABLET DAILY AT BEDTIME NEEDED FOR INSOMNIA AND ANXIETY active Nurtec ODT 75 mg disintegrating tablet TAKE 1 TABLET ONCE NEEDED FOR MIGRAINE HEADACHE active omeprazole 20 mg capsule,delayed release TAKE 1 CAPSULE BY MOUTH TWICE A DAY active oxycodone 5 mg tablet TAKE 1 TABLET BY MOUTH EVERY 6 HOURS active pantoprazole 40 mg tablet,delayed release TAKE 1 TABLET BY MOUTH TWICE A DAY DO NOT CRUSH, CHEW, OR SPLIT active sertraline 100 mg tablet TAKE 1 TABLET BY MOUTH TWICE A DAY active simvastatin 10 mg tablet TAKE 1 TABLET BY MOUTH EVERYDAY AT BEDTIME active trazodone 100 mg tablet TAKE 2 TABLETS BY MOUTH DAILY AT BEDTIME active valacyclovir 1 gram tablet TAKE 1 TABLET BY MOUTH 3 TIMES A DAY FOR 7 DAYS active Allergies Allergen Reaction Severity Comment Documented Date Source Statu s SULFA (SULFONAMIDE ANTIBIOTICS) HIVES moderate to severe ENS_AONECT Problems Problem Status Onset Date Problem Type Date of Resoluti on Source Toe joint rigid active 2024-11-12 ProblemAct EN S_AONECT Hammer toe active 2024-11-12 ProblemAct ENS_AON ECT Encounters Encounter Type Encounter Reason Primary Diagnosis Location Date Ambulatory [facility] 12/22/2024 Ambulatory ROUTINE Hallux rigidus, right foot [facility] 12/08/2024 Ambulatory [facility] 12/05/2024 Ambulatory [facility] 12/05/2024 Ambulatory [facility] 11/29/2024 Ambulatory [facility] 11/29/2024 Ambulatory [facility] 11/13/2024 Ambulatory [facility] 11/10/2024 Ambulatory [facility] 11/09/2024 Ambulatory [facility] 11/09/2024 Ambulatory [facility] 11/09/2024 Ambulatory [facility] 07/29/2022 Care Team Organization Name Specialty Phone Email Start Date End Da jade [facility] 2024 [facility] 2024
--- OUTSIDE RECORDS SUMMARY | 2024-12-27 10:08 | XMS_ITS | Encounter Summary ---
Author Organization [facility] Address [address] [place] [address] Care Team Providers Care Ranch Hand Name Role Phone Elma Calhoun MD Primary Care Provider Encounter Details Date Type Department Care Team (Late st Contact Info) Description 10/05/2024 Lab Requisition [facility] - Main Lab [address] [facility] [place] [phone] Hai Bateman MD [address] [facility] [address] [place] [address] Epigastric pain; Gastro-esophageal reflux disease without esophagitis Social History Tobacco Use Types Packs/Day Years [...] on file documented as of this encounter Plan of Treatment Not on file documented as of this encounter Procedures Procedure Name Priority Date/Time Associated Diagnosis Comments TISSUE EXAM Routine 10/05/2024 Epigastric pain Gastro-esophageal reflux disease without esophagitis documented in this encounter Results * Tissue Exam (10/05/2024) Final Diagnosis A. Duodenum, biopsy: Benign duodenal mucosa with no specific pathologic change. No villous blunting or increased intraepithelial lymphocytes identified. B. Gastric, Antrum, biopsy: Gastric mucosa with mild chronic inactive gastritis. No Helicobacter pylori identified. Note: No Helicobacter was identified on routine stains. Because of gastritis and clinical concern, immunohistochemical stain for H. pylori was performed and is interpreted as negative, supporting the above diagnosis. Control stains appropriately. 4:38 PM EDT [facility] Clinical Information Epigastric abdominal pain, Gastro-esophageal reflux disease, failure to respond to medical treatment R/O Celiac Sprue R/O Helicobacter pylori 4:38 PM [facility] Gross Description A. Small Intestine, Duodenum, second and third part biopsy: labeled duodenum-second part, third part biopsy . Received in formalin are six soft to rubbery, white-mota tissue fragments ranging from 0.2 to 0.35 cm, in greatest diameters, which are wrapped in paper and submitted in toto in one cassette, six pieces, multiple levels. B. Gastric, Antrum, biopsy: Labeled antrum biopsy . Received in formalin are four soft to rubbery, white-mota tissue fragments ranging from 0.25 cm to 0.5 cm, in greatest diameters, which are wrapped in paper and submitted in toto in one cassette, four pieces, multiple levels. dvb/DAYAN 4:38 PM EDT [facility] Disclaimer NOTE: The immunohistochemical tests and in situ hybridization tests were developed and their performance characteristics were determined by [facility]. They have not been cleared or approved by the U.S. Food and Drug Administration. The FDA has determined that such clearance or approval is not necessary. These tests are used for clinical purposes. They should not be regarded as investigational or for research. This laboratory is certified under the Clinical Laboratory Improvement Amendments of 1988 (CLIA) as qualified to perform high complexity clinical laboratory testing. (controls appropriate) Unless otherwise specified, all tissue is 10% NB formalin fixed and paraffin embedded. 4:[address] [facility] Tissue Pyloric antrum structure / Unknown 10/05/2024 10/05/2024 6:06 PM EDT Tissue specimen (specimen) Pyloric antrum structure / Unknown 10/05/2024 10/05/2024 6:06 PM EDT us Hai Bateman MD LAB PATHOLOGY ORDERABLES Sally orta Result [facility] [address] [place] [address], documented in this encounter Visit Diagnoses Diagnosis Epigastric pain Abdominal pain, epigastric Gastro-esophageal reflux disease without esophagitis documented in this encounter Care Teams Ranch Hand Relationship Specialty Start Date End Date Elma Calhoun MD [address] [place] [id number] PCP - General Internal Medicine 07/10/21 documented as of this encounter
== END 2024-12-27 10:29 | disposition home or self-care (01) ==
LOC: HO.HSMS 09:43
PROVIDERS: PCP Internal Medicine; Visit Provider Psychiatry & Neurology Neurology
DX: G25.2 Other specified forms of tremor (principal); G43.009 Migraine without aura, not intractable, without status migrainosus; R49.0 Dysphonia
CPT/HCPCS: 99214; G2211

== ENCOUNTER → 2024-12-27 09:43 | Outpatient (BNVA) | payer MEDICARE, SELFPAY | PROVIDERS: PCP Internal Medicine; Visit Provider Psychiatry & Neurology Neurology | DX: G25.2 Other specified forms of tremor (principal); G43.009 Migraine without aura, not intractable, without status migrainosus; R49.0 Dysphonia | CPT/HCPCS: 99212 ==

== ENCOUNTER 2025-04-05 10:08 | Outpatient (AMB) | payer MEDICARE, SELFPAY ==
[2025-04-05 10:17] VITALS: BMI 24.7
--- NOTE | 2025-04-05 10:17 | A.PHYSOV ---
Vital Signs 04/05/25 10:17 Height 5 ft 2 in Weight 135 lb BMI 24.7 Intake Visit Reasons: F/U after MRI- missed appt on 01/23/2025 Intake Note: Patient is a 74 year old female in office today for results of Lumbar spine Mri Allergies oxycodone (From Percocet) Allergy (Mild, Verified 04/05/25 10:15) Unknown povidone-iodine (From Betadine) Allergy (Mild, Verified 04/05/25 10:15) Unknown Sulfa (Sulfonamide Antibiotics) Allergy (Mild, Verified 04/05/25 10:15) Unknown HPI Comments Details: History of Present Illness The patient is a 74-year-old female presenting with chronic lower back pain. The pain has been present for many years and has progressively worsened, now accompanied by left-sided lumbar radicular symptoms. Previously, she experienced right-sided lumbar radicular symptoms and was evaluated by spine specialists. She underwent extensive physical therapy, which resulted in only mild improvement, and she continues with physician-guided home exercises. Lumbar sacral spine x-rays were noncontributory, and an MRI was performed on December 18, 2024, revealing levoconvex lumbar curvature with degenerative changes. The MRI also showed severe left neural foraminal narrowing with crowding of the exiting left L5 nerve root at the L5-S1 level, and a discosteophyte complex at the L4-L5 level affecting the L5 nerve root. These findings contribute to her symptoms, and the images were reviewed and discussed with her. Pain Description - Onset: Pain has been present for many years and progressively worsening. - Quality: Described as radiating down the left leg. - Location: Lower back with left-sided lumbar radicular symptoms. - Exacerbating factors: Standing up increases pain. - Relieving factors: Sitting down usually alleviates pain. - Interference: Pain affects daily activities, particularly in the morning. Results - Imaging: Lumbar sacral spine x-rays were noncontributory. - Imaging: MRI on December 18, 2024, showed levoconvex lumbar curvature with degenerative changes, severe left neural foraminal narrowing, and discosteophyte complex at L4-L5. [facility] Medical History Migraine Neck pain Anxiety Hoarseness of voice Coarse tremors Hypersomnia Snoring Back pain Lacunar infarction Hypercholesteremia Hyperlipidemia Seizure Syncope Hypoglycemia Depression GERD (gastroesophageal reflux disease) Anxiety disorder Surgical History History of removal of ovarian cyst History of appendectomy H/O foot surgery H/O lumpectomy Family History Mother Dementia Father CAD (coronary artery disease) Arthritis Daughter Stroke Social History Alcohol intake: current Comment: 1-2 drinks per week Patient Tobacco Use Status: Never used Tobacco Review of Systems Narrative Review of Systems - Musculoskeletal: Reports chronic lower back pain with left-sided lumbar radicular symptoms. - Neurological: Reports numbness related to nerve involvement. Physical Exam Exam Exam: Physical Exam Patient appears to be in no acute distress, appropriately conversant and oriented. She was able to ambulate without antalgia and was able to perform heel walk and toe walk with support for balance. Lumbar extension was restricted. Dural tension signs were positive for left lower extremity. Left SI tenderness with palpation. Positive left SI compression test, FABERE sign and [place] signs. Neurological examination was nonfocal. Patient demonstrated no upper motor neuron signs. Vital Signs: BMI result Body Mass Index 24.7 Assessment & Plan Assessment & Plan (1) Radiculopathy, lumbar region: Code(s): M54.16 - Radiculopathy, lumbar region Category: Medical (2) Spinal stenosis, lumbar region with neurogenic claudication: Code(s): M48.062 - Spinal stenosis, lumbar region with neurogenic claudication Category: Medical (3) Sacroiliac dysfunction: Code(s): M53.3 - Sacrococcygeal disorders, not elsewhere classified Category: Medical Plan Pain Management - Affect: Pain impacts daily activities and causes morning stiffness. - Analgesia: Current pain level is 5-6 out of 10. - Activities of Daily Living: Pain affects standing and morning activities. Plan Patient was informed and verbally consented to the use of an ambient scribe for clinic note documentation during this visit. 1. Chronic Lower Back Pain The patient has chronic lower back pain with left-sided lumbar radiculopathy, confirmed by MRI findings of neural foraminal narrowing and discosteophyte complex. A plan was discussed to manage the pain with an L5-S1 epidural injection, which the patient agreed to proceed with after stopping aspirin for seven days. The injection aims to provide temporary relief, and the patient will be contacted to schedule the procedure. If she fails to improve with interlaminar L5-S1 epidural injection, I will recommend trial of left L5 and possibly L4 and L5 transforaminal approach. Discussion Notes I discussed with the patient the findings of her MRI, which showed neural foraminal narrowing and a discosteophyte complex contributing to her symptoms. We reviewed the option of an L5-S1 epidural injection to manage her pain, explaining that it could provide temporary relief. The patient was informed about the need to stop aspirin for seven days prior to the procedure, and she agreed to proceed with scheduling the injection. Patient Instructions - Stop taking aspirin seven days before the scheduled injection. - Continue with home exercises as guided by the physician. - Expect a call to schedule the L5-S1 epidural injection. Coding Level of Care Code Est Pt Level 4 (75025) Complex EM visit Add On G2211 Diagnoses Radiculopathy, lumbar region M54.16 Spinal stenosis, lumbar region with neurogenic claudication M48.062 Sacroiliac dysfunction M53.3
--- OUTSIDE RECORDS SUMMARY | 2025-04-05 12:10 | XMS_ITS | Continuity of Care Document ---
Author Organization [place] [facility] Amelie [facility] [place] Address [address] [place] [phone] Care Team Providers Care Roller Mill Tender Name Role Phone MIREYA LIANG Primary Care Provider [phone] MIREYA LIANG Referring Provider [phone] Assessment Encounter Date Assessment Date Assessment LastModified by Organization Details LastModified Time 03/15/2025 03/15/2025 She is 3 months following her right first MTP fusion and 2nd and 3rd hammertoe correction. Her x-rays are showing excellent signs of consolidation. She did fracture through her previous PIP arthroplasty of the left second toe. She can gabriel tape her toes if desired otherwise she can continue in her regular footwear. Follow-up in 6 weeks for her left foot, and 3 months for her right foot with repeat weightbearing x-rays. Patient was seen and evaluated by Diana Ramsay PA-C in indirect conjunction with Documenting Provider: June Patel MD He/She agrees with history, physical examination, tests/diagnostic imaging, and treatment plan [email or web address] Not available 03/15/2025 14:10:09 Plan of Treatment Reminders Order Date Submit Date Provider Last Modified By Organization Details Last Modified Time Details Appointments FOLLOW UP 2024 01:00P M June Patel MD Not available Not available Not available FOLLOW UP 2024 01:00P M June Patel MD Not available Not available Not available Lab None recorded . Referral None recorded . Procedures None recorded . Surgeries None recorded . Imaging XR, foot, 3 or more view 2024 025 [email or web address] [facility], [address], [address] [place], [address], 03/15/2025 14:30:37 XR, foot, 3 or more view 2024 025 [email or web address] [facility], [address], [address], [place], [address], 03/15/2025 14:30:37 Medication Orders None recorded . Patient TargetsNo targets recorded. Patient Instructions Encounter Date Encounter Id Patient Instructions Last Modified By Organization Details Last Modified Time 03/15/2025 [id number] views of the right foot obtained weightbearing on 03/15/2025 which demonstrates stable first MTP arthrodesis and correction of her 2nd and 3rd hammertoes With evidence of consolidation across her fusion sites Weightbearing x-rays of the left foot demonstrate evidence of prior first MTP arthrodesis, no retained hardware. There is evidence of a fracture at her PIP arthrodesis of the second toe. [email or web address] Not available 03/15/2025 14:10:42 Reason for Referral None Reported. Problems Name Problem SNOMED Code Status Onset Date Resolution Date Notes Provider Name and Address Organization Details Recorded Time Problem 53634075 Active No known active problems Not Available [facility] 00:10[facility]52 Toe joint rigid 359750029 Active 2024 June Patel MD [address], [place], [address] , [facility] - [facility], P 5 15:45:04 Hammer toe 153159608 Active 2024 June Patel MD [address], [place], [address] , [place] [facility], P 5 15:45:08 Problem Notes None recorded. Procedures Surgical History Date Name Laterality Status Provider Name and Address Organization Details Recorded Time 12/09/19 25 ORTHOPAEDIC SURGERY (SURG) completed Angelica Ignacio [place] - [facility] 12/11/2024 09:41:45 Imaging Results None recorded. Procedure Notes None recorded. Medical Equipment None Reported. Allergies Allergen ID Allergen Name Allergen Category Reaction Reaction Severity Criticality Documentation Date Start Date Code Code System Note Provider Name and Address Organization Details Recorded Time 67646 Substance with sulfonami de structure and antibacte rial mechanism of action (substanc e) medicatio n hives severe Not available 11/30/20241979 41571 8003 SNOMED Chance Dexter [place], [place] - [facility] 11:27:07 Medications Name Sig Start Date Stop Date Status Note LastModified by Organization Details LastModified Time aspirin 325 mg tablet Take 1 tablet every day by oral route for 30 days. 2024 active Not Available Not Available Not Avai lable valacyclovi r 1 gram tablet TAKE 1 TABLET BY MOUTH 3 TIMES A DAY FOR 7 DAYS 11/30 completed Not Available Not Available Not Available betamethaso ne, augmented 0.05 % topical cream PLEASE SEE ATTACHED FOR DETAILED DIRECTION S 12/21 completed Not Available Not Available Not Available sertraline 100 mg tablet TAKE 1 TABLET BY MOUTH TWICE A DAY active Not Available Not Available No t Available simvastatin 10 mg tablet TAKE 1 TABLET BY MOUTH EVERYDAY AT BEDTIME active Not Available Not Available No t Available trazodone 100 mg tablet TAKE 2 TABLETS BY MOUTH DAILY AT BEDTIME active Not Available Not Available No t Available dexamethaso ne 1 mg tablet 1 TABLET BY MOUTH ONCE,INST R:TO BE TAKEN AT 11PM 03/15 completed Not Available Not Available Not Available simvastatin 5 mg tablet 03/15 completed Not Available Not Available Not Available pantoprazol e 40 mg tablet,carlyn yed release TAKE 1 TABLET BY MOUTH TWICE A DAY DO NOT CRUSH, CHEW, OR SPLIT active Not Available Not Available No t Available trazodone 150 mg tablet 03/15 completed Not Available Not Available Not Available omeprazole 20 mg capsule,del ayed release TAKE 1 CAPSULE BY MOUTH TWICE A DAY 11/30 completed Not Available Not Available Not Available lorazepam 1 mg tablet TAKE 1 TABLET DAILY AT BEDTIME NEEDED FOR INSOMNIA AND ANXIETY active Not Available Not Available No t Available ibuprofen 600 mg tablet TAKE 1 TABLET BY MOUTH EVERY 6 HOURS 03/15 completed Not Available Not Available Not Available scopolamine 1 mg over [address] PATCH BEHIND EAR EVERY 72 HOURS 03/15 completed Not Available Not Available Not Available Tylenol Extra Strength 500 mg tablet Take 2 tablets 3 times a day by oral route. 2024 active Not Available Not Available Not Avai lable oxycodone 5 mg tablet TAKE 1 TABLET BY MOUTH EVERY 6 HOURS 03/15 completed Not Available Not Available Not Available Readi-Cat 2 2 % (w/v) oral suspension USE DIRECTED 03/15 completed Not Available Not Available Not Available Nurte ODT 75 mg disintegrat ing tablet TAKE 1 TABLET ONCE NEEDED FOR MIGRAINE HEADACHE active Not Available Not Available No t Available Vitals Date Recorded Body height Body mass index (BMI) Body weight Provider Name and Address Organization Details Last Updated DateTime 03/15/2025 160.02 cm 23.9 kg/m2 [address]290.[address] [place] - [facility], 03/15/2025 13:54:44 Social History None recorded. Functional Status None recorded. Mental Status None recorded. Family History Nothing Reported. Medical History No medical history recorded. Gynecological HistoryNo gynecological history recorded. Obstetrics History GPAL:G 0 P 0 0 0 0 Past Encounters Encounter ID Performer Location Encounter Start Date Encounter Closed Date Diagnosis/Indication Diagnosis SNOMED-CT Code Diagnosis ICD10 Code Diagnosis IMO Codes Diagnosis Note [id number] DIANA RAMSAY PA-C [address] [address] 03/15/2025 13:40:21 03/15/2025 14:13:14 Postoperative visit 279150882 Z48.89 71990567 Toe joint rigid 64455574 4 M20.21 5078858 Hammer toe 532483330 M20 .41 60890320 Pain in left foot 779030 3767 14909 M79.672 733748 Health Concerns Section Related Observation LastModified by Organization Detai ls LastModified Time None Recorded Concern Status LastModified by Organization Details LastModified Time None Recorded Payers Encounter Date Sequence Insurance Name Policy Number Policy Key Covered Member ID Key Member ID Guarantor Name 03/15/2025 2 [place] [id number] Michelle Whitmore [id number] Michelle Whitmore 03/15/2025 1 [place] Michelle Whitmore [id number] Michelle Whitmore Notes Date Note Type Note Provider Name and Address Organization Details Recorded Time 03/15/2025 text/html Date of Surgery: 12/08/24: Right first MTP fusion, correction 2nd and 3rd hammertoes with MTP capsulotomy, extensor tendon lengthening Michelle Whitmore is a 74-year-old female who presents 3 months from her right foot procedure. In regards to her right foot she has no pain and she is doing well. She has no complaints.Earlier this week she stubbed her left second toe while trying to get dressed. She has developed swelling in the left second toe. From 01/18/25 (TK): today 6 weeks post operatively. She still complains of numbness to her toes. She otherwise has no pain. She has not been letting her foot get wet in the shower. She is not requiring any pain medication. She denies chest pain, shortness of breath, calf pain, calf swelling or fevers. From 01/02/25 (TK): today 3 and half weeks Postoperatively. She found one of her pins in her bed 2 days ago. She also thought at the time that maybe her toe was crooked. She contacted the office and wanted to be seen sooner than her scheduled appointment. Otherwise she has no complaints and is doing well. From 12/21/24 (TK): for her first post operative appointment. Her pain is minimal and a 4/10 on average. She takes oxycodone as needed in addition to Tylenol and ibuprofen. She is taking aspirin for DVT prophylaxis. She has been tolerating her wedge shoe and has been using a knee scooter. She denies chest pain, shortness of breath, calf pain, calf swelling or fevers. From 11/30/24 (AJF): follow-up evaluation regarding her right foot. She would like to proceed with operative intervention. From 11/09/24 (AJF): for new patient evaluation regarding her right foot. She notes that she has a previous history of left foot correction by Dr. Justice in 2014 and overall did well after this. She did not want to have her right foot fixed at that time as she was still working and would be unable to drive. However, now that she is working less, she would like to consider operative intervention on her right foot. Her pain is a 2 out of 10. It is moderate and intermittent and worsening. She has taken Aleve without any improvement. She has a history of hyperlipidemia. She is also on trazodone and Zoloft and melatonin. She also notes a history of hypoglycemia. 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 She does not smoke. She drinks less than 1 drink a week. June Patel MD [address], [place], [address], [place] [facility] 03/19/2025 06:38:11 OBGyn Episode No OBEpisode recorded.
--- OUTSIDE RECORDS SUMMARY | 2025-04-05 12:10 | XMS_ITS | Data Portability ---
Author Organization [place] - [facility], Allergy Address [address] [address] Care Team Providers Care Patient Access Manager Name Role Phone MIREYA LIANG Primary Care Provider [phone] Assessment Encounter Date Assessment Date Assessment LastModified [...] speech language patholog ist referral 2024 025 [facility], [address] [facility], [address] Floor, [place], [address], 13:42:34 Procedures None recorded . Surgeries None recorded . Imaging None recorded . Medication Orders None recorded . Patient TargetsNo targets recorded. Patient InstructionsNo instructions recorded. Reason for Referral Speech Language Pathologist Referral for Chronic hoarseness Referring Physician: Cindy Loredo, Otolaryngology, Encounter Date: 06/16/2024 Problems Name Problem SNOMED Code Status Onset Date Resolution Date Notes Provider Name and Address Organization Details Recorded Time Sudden idiopathi c hearing loss 738096305 Active 2017 Sudden idiopathi c hearing loss, left ear; Note: Date Diagnosed : 11/11/2017 12:13 PM (H91.22) Not Available [facility] 4 02:55:57 Chronic rhinitis 71351130 Active 2021 Obstructi ve rhinitis (chronic) ; Note: Date Diagnosed : 2 3:28 PM (J31.0) Not Available [facility] 4 02:55:57 Sensorine ural hearing loss of bilateral ears 093732745 Active 2021 Sensorine ural hearing loss, bilateral ; Note: Date Diagnosed : 2 3:51 PM (H90.3) Not Available [facility] 4 02:55:58 Allergic rhinitis caused by pollen 35811197 Active 2021 Allergic rhinitis due to pollen; Note: Date Diagnosed : 2 3:28 PM (J30.1) Not Available [facility] 4 02:55:57 Chronic hoarsenes s 37645129580 05 Active 2024 CINDY LOREDO PA-C [address] [place] [address], [facility] [place], [address] , [facility] 5 14:10:42 Gastroeso phageal reflux disease without esophagit is 439525994 Active 2024 CINDY LOREDO PA-C [address] [place], [place] [address], [address] , [facility] 5 14:10:49 Problem Notes None recorded. Procedures Surgical History Date Name Laterality Status Provider Name and Address Organization Details Recorded Time 06/16/2024 FOL_Reflux _JMS completed CINDY LOREDO PA-C [address] [place] [address], [place], [address], [facility] 06/16/2024 14:09:40 Imaging Results None recorded. Procedure Notes None recorded. Medical Equipment None Reported. Allergies Allergen ID Allergen Name Allergen Category Reaction Reaction Severity Criticality Documentation Date Start Date Code Code System Note Provider Name and Address Organization Details Recorded Time 924113 Substance with sulfonami de structure and antibacte rial mechanism of action (substanc e) medicatio n other Not available Not available 10/05/2023 24792 8003 SNOMED React ion: unkno wn, unspe cifie d;; Not Available [facility] 4 01:19:30 Medications Name Sig Start Date Stop Date Status Note LastModified by Organization Details LastModified Time amoxicilli n 500 mg capsule TAKE 1 CAPSULE BY MOUTH 3 TIMES A DAY UNTIL GONE active Not Available Not Available No t Available prednisone 10 mg tablet 2017 active Medicatio n ID: [id number] Pr escribed By Name: Lili Tomas, MARY [...] ICD10 Code Diagnosis IMO Codes Diagnosis Note [id number] CINDY LOREDO PA-C [facility] [address] [address] 06/16/2024 13:23:26 06/16/2024 13:46:55 Chronic hoarseness 3818163354 105 R49.0 Gastroesop hageal reflux disease without esophagitis 398387939 K21.9 Health Concerns Section Related Observation LastModified by Organization Detai ls LastModified Time None Recorded Concern Status LastModified by Organization Details LastModified Time None Recorded Advance Directives Directive None Recorded Payers Insurance Date Sequence Insurance Name Policy Number Policy Key Covered Member ID Key Member ID Guarantor Name 06/16/2024 1 [place] [employer] Michelle Whitmore [id number] Michelle Whitmore 06/16/2024 2 [place] [id number] Michelle Whitmore [id number] Michelle Whitmore Notes Date Note Type Note Provider Name and Address Organization Details Recorded Time 06/16/2024 text/html ROS as noted in the HPI 74-year-old female presents for evaluation of hoarseness. She has [...] and has had endoscopy. SHAMA AGUIRRE MD [address] [place] [address], [address], [facility] - [facility] 06/16/2024 15:47:32 OBGyn Episode No OBEpisode recorded.
--- OUTSIDE RECORDS SUMMARY | 2025-04-05 12:10 | XMS_ITS | Encounter Summary ---
Author Organization [facility] Address [address] [place] [address] Care Team Providers Care Senior Applications Architect Name Role Phone Elma Calhoun MD Primary Care Provider [phone] Encounter Details Date Type Department Care Team (Late st Contact Info) Description 10/05/2024 Lab Requisition [facility] - Main Lab [address] [facility] [place] [place] [id number] Hai Bateman MD [address] [facility] [address] [place] [address] Epigastric pain; Gastro-esophageal reflux disease without esophagitis [...] diagnosis. Control stains appropriately. 4:[address] [facility] Clinical Information Epigastric abdominal pain, Gastro-esophageal reflux disease, failure to respond to medical treatment R/O Celiac Sprue R/O Helicobacter pylori 4:38 PM [facility] Gross Description A. Small Intestine, [...] pieces, multiple levels. dvb/DAYAN 4:[address] [facility] Disclaimer NOTE: The immunohistochemical tests and in situ hybridization tests were developed and their performance characteristics were determined by [facility]. They have not been [...] fixed and paraffin embedded. 4:38 PM T [facility] Tissue Pyloric antrum structure / Unknown 10/05/2024 10/05/2024 6:06 PM EDT Tissue specimen (specimen) Pyloric antrum structure / Unknown 10/05/2024 10/05/2024 6:06 PM EDT us Hai Bateman MD LAB PATHOLOGY ORDERABLES Sally orta Result [facility] [address] [place] [address], documented in this encounter Visit Diagnoses Diagnosis Epigastric pain Abdominal pain, epigastric Gastro-esophageal reflux disease without esophagitis documented in this encounter Care Teams Senior Applications Architect Relationship Specialty Start Date End Date Elma Calhoun MD [address] [place] [address] PCP - General Internal Medicine 07/10/21 documented as of this encounter
--- OUTSIDE RECORDS SUMMARY | 2025-04-05 12:10 | XMS_ITS | Data Portability ---
Author Organization [place] [facility] [place] Address [address] [place] [address] Care Team Providers Care Mri Supervisor Name Role Phone MIREYA LIANG Primary Care Provider MIREYA LIANG Referring Provider [phone] Assessment Encounter Date Assessment Date Assessment LastModified by Organization Details LastModified Time 11/30/2024 11/30/2024 We discussed her treatment options including continuing to manage this nonoperatively with accommodative footwear, consider carbon fiber insert or rigid shoe wear to improve her first MTP pain, as well as shoes that will not bother her 2nd and 3rd hammertoes. She previously did quite well after forefoot correction of the left side and she would like to consider this on the right side. We discussed that this, like her contralateral side, would entail a first MTP fusion as well as correction of her 2nd and 3rd hammertoes with a PIP arthroplasty and flexor tenotomy and possible extensor tendon lengthening and MTP capsulotomy. She would have pins sticking out of her 2nd and 3rd toes for approximately 6 weeks. She will be heel weightbearing in a postop shoe for 4 weeks and then flat for an additional 2 weeks. She has seen her primary care physician. She reports that she did not get any lab work or an EKG. We will check on this. We discussed the alternatives and details of surgery and postoperative care with the patient. The patient understands the concepts of surgery and the postoperative conditions required for healing. The patient further understands that surgery is somewhat unpredictable and can have unfavorable outcomes. In particular, we discussed the possible local complications of infection requiring further surgery or removal of tissue, nonhealing of the tissues and need for reoperation, nerve injury, massive infection requiring amputation and loss of limb, a bad outcome with continued or worse pain and unforeseen, unanticipated problems including complications causing severe disability or poor function. We also discussed life-threatening complications including stroke, clot, pulmonary embolism and related to the surgery or anesthesia, or other factors. The patient understands these risks and understands the surgery. Informed consent was obtained. [email or web address] Not available 12/04/2024 07:33:14 12/21/2024 12/21/2024 She is doing wel l two weeks post operatively following her right foot 1st MTP fusion and 2-3 hammertoe correcetion She will remain in the Wedged shoe for an additional 2 weeks and then will transition to her flat shoe. Continue with DVT prophylaxis for an additional 2 weeks. Plan to follow up in 4 weeks for pin removal and repeat evaluation with repeat weightbearing right foot xrays Patient was prescribed a flat shoe for above diagnosis. The patient is ambulatory but has weakness and/or instability which requires stabilization from this semi-rigid / rigid orthosis to improve their function. Patient was seen and evaluated by Diana Ramsay PA-C in indirect conjunction with Documenting Provider: June Patel MD He/She agrees with history, physical examination, tests/diagnostic imaging, and treatment plan [email or web address] Not available 12/21/2024 10:57:58 01/02/2025 01/02/2025 She is doing wel l 3.5 weeks post operatively following her right foot 1st MTP fusion and 2-3 hammertoe correction She was reassured that there is no significant concern losing 1 pin from the second toe. Her alignment is still corrected from preoperatively. She will continue in her wedge shoe and transition at 4 weeks postoperatively to her flat shoe. She will follow-up as previously discussed for pin removal. Patient was seen and evaluated by Diana Ramsay PA-C in indirect conjunction with Documenting Provider: June Patel MD He/She agrees with history, physical examination, tests/diagnostic imaging, and treatment plan [email or web address] Not available 01/02/2025 15:05:19 01/18/2025 01/18/2025 She is doing wel l six weeks post operatively following her right 1st MTP fusion and 2-3 hammertoe correction. She may begin to transition to regular footwear as tolerated. She was encouraged to shower her foot and let it get wet. Plan to follow up in 6 weeks for repeat evaluation with repeat weightbearing right foot xrays Patient was seen and evaluated by Diana Ramsay PA-C in indirect conjunction with Documenting Provider: June Patel MD He/She agrees with history, physical examination, tests/diagnostic imaging, and treatment plan [email or web address] Not available 01/18/2025 11:51:27 03/15/2025 03/15/2025 She is 3 months following [...] physical examination, tests/diagnostic imaging, and treatment plan [email or web address] Not available 03/15/2025 14:10:09 Plan of Treatment Reminders Order Date Submit Date Provider Last Modified By Organization Details Last Modified Time Details Appointments FOLLOW UP 2024 01:00P M June Patel MD Not available Not available Not available FOLLOW UP 2024 01:00P M June Patel MD Not available Not available Not available Lab None recorded. Referral None recorded. Procedures None recorded. Surgeries orthopaed ic surgery (SURG) 2024 025 MONA Not available 12/11/2024 09:41:39 Imaging XR, foot, 3 or more view 2024 025 [email or web address] [facility], [address], [place], [address], 03/15/2025 14:30:37 XR, foot, 3 or more view 2024 025 [email or web address] [facility], [address], [place], [address], 03/15/2025 14:30:37 XR, foot, 3 or more view 2024 025 [email or web address] [facility], [address], [place], [address], 01/18/2025 12:44:54 XR, foot, 3 or more view 2024 025 [email or web address] [facility], [address], [place], [address], 01/02/2025 15:23:09 XR, foot, 3 or more view 2024 025 [email or web address] [facility], [address], [place], [address], 12/21/2024 11:23:34 Medication Orders None recorded. Patient TargetsNo targets recorded. Patient Instructions Encounter Date Encounter Id Patient Instructions Last Modified By Organization Details Last Modified Time 11/30/2024 [id number] views of the r ight foot obtained weightbearing on 11/09/2024 demonstrates hallux rigidus with narrowing of the first MTP joint space and dorsal spurring. There is hammering of the 2nd and 3rd toes. [email or web address] Not available 11/30/2024 09:04:37 12/21/2024 [id number] 3 views of the r ight foot obtained weightbearing on 12/21/2024 which demonstrates interval first MTP arthrodesis and correction of her 2nd and 3rd hammertoes. Surgical pins are unchanged from intraoperatively [email or web address] Not available 12/21/2024 10:58:20 01/02/2025 [id number] 3 views of the r ight foot obtained weightbearing on 01/02/2025 which demonstrates stable first MTP arthrodesis and correction of her 2nd and 3rd hammertoes. There is one remaining pin in the second toe [email or web address] Not available 01/02/2025 15:05:39 01/18/2025 901088 3 views of the r ight foot obtained weightbearing on 01/18/2025 which demonstrates stable first MTP arthrodesis and correction of her 2nd and 3rd hammertoes. There is one remaining pin in the second toe [email or web address] Not available 01/18/2025 11:51:32 03/15/2025 732960 3 views of the r ight foot obtained weightbearing on 03/15/2025 which demonstrates stable first MTP arthrodesis and correction of her 2nd and 3rd hammertoes With evidence of consolidation across her fusion sites Weightbearing x-rays of the left foot demonstrate evidence of prior first MTP arthrodesis, no retained hardware. There is evidence of a fracture at her PIP arthrodesis of the second toe. [email or web address] Not available 03/15/2025 14:10:42 Reason for Referral None Reported. 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 Procedures Surgical History Date Name Laterality Status Provider Name and Address Organization Details Recorded Time 12/09/19 25 ORTHOPAEDIC SURGERY (SURG) completed Angelica Ignacio [place] - [facility] 12/11/2024 09:41:45 Imaging Results None recorded. Procedure Notes None recorded. Medical Equipment None Reported. Allergies Allergen ID Allergen Name Allergen Category Reaction Reaction Severity Criticality Documentation Date Start Date Code Code System Note Provider Name and Address Organization Details Recorded Time 73864 Substance with sulfonami de structure and antibacte rial mechanism of action (substanc e) medicatio n hives severe Not available 11/30/20241979 66061 8003 SNOMED Chance vinson, [place] - [facility], [facility] 5 11:27:07 Medications Name Sig Start Date Stop [...] completed Not Available Not Available Not Available Nurtec ODT 75 mg disintegrat ing tablet TAKE 1 TABLET ONCE NEEDED FOR MIGRAINE HEADACHE active Not Available Not Available No t Available Vitals Date Recorded Body height Body mass index (BMI) Body weight Provider Name and Address Organization Details Last Updated DateTime 12/21/2024 160.02 cm 23.9 kg/m2 18468.97 g Sharmin [facility] [place] [facility] 12/21/2024 10:39:13 Date Recorded Body height Body mass index (BMI) Body weight Provider Name and Address Organization Details Last Updated DateTime 01/02/2025 160.02 cm 23.9 kg/m2 01916.[address] - [facility] 01/02/2025 14:35:23 Date Recorded Body height Body mass index (BMI) Body weight Provider Name and Address Organization Details Last Updated DateTime 01/18/2025 160.02 cm 23.9 kg/m2 79223.97 g Sharmin [facility] [place] [facility] 01/18/2025 11:30:06 Date Recorded Body height Body mass index (BMI) Body weight Provider Name and Address Organization Details Last Updated DateTime 03/15/2025 160.02 cm 23.9 kg/m2 82119.[address] [place] [facility] 03/15/2025 13:54:44 Social History None recorded. Functional Status None recorded. Mental Status None recorded. Family History Nothing Reported. Medical History No medical history recorded. Gynecological HistoryNo gynecological history recorded. Obstetrics History GPAL:G 0 P 0 0 0 0 Past Encounters Encounter ID Performer Location Encounter Start Date Encounter Closed Date Diagnosis/Indication Diagnosis SNOMED-CT Code Diagnosis ICD10 Code Diagnosis IMO Codes Diagnosis Note [id number] MD BRIA Santos [address] [address] 11/09/2024 10:32:02 11/09/2024 11:34:55 Pain in right foot 9577760114 75220 M79.671 857695 Toe joint rigid 04461671 4 M20.21 9268278 Hammer toe 133128351 M20 .41 [id number] MD BRIA Santos [address] [place] [address] 11/30/2024 11:14:00 11/30/2024 12:10:27 Toe joint rigid 687818832 M20.21 6371405 Hammer toe 647769768 M20 .41 02110771 [id number] CRISTIAN ANNA [place] [id number] 12/21/2024 10:22:09 12/21/2024 11:23:34 Toe joint rigid 539402578 M20.21 7496818 Hammer toe 441856660 M20 .41 [id number] CRISTIAN ANNA [address] [address] 01/02/2025 14:33:43 01/02/2025 15:01:11 Postoperative visit 342890072 Z48.89 56959709 Toe joint rigid 00519137 4 M20.21 6657623 Hammer toe 590463708 M20 .41 23766711 [id number] CRISTIAN ANNA [place] [id number] 01/18/2025 11:21:48 01/18/2025 11:51:01 Postoperative visit 518228441 Z48.89 28135843 Toe joint rigid 75543817 4 M20.21 1820398 Hammer toe 553206882 M20 .41 64199778 [id number] CRISTIAN ANNA [place] [id number] 03/15/2025 13:40:21 03/15/2025 14:13:14 Postoperative visit 327129713 Z48.89 64659693 Toe joint rigid 07412142 4 M20.21 7918644 Hammer toe 537674237 M20 .41 69259503 Pain in left foot 555510 9629 11990 M79.672 771499 Health Concerns Section Related Observation LastModified by Organization Detai ls LastModified Time None Recorded Concern Status LastModified by Organization Details LastModified Time None Recorded Advance Directives Directive None Recorded Payers Insurance Date Sequence Insurance Name Policy Number Policy Key Covered Member ID Key Member ID Guarantor Name 04/02/2025 2 [place] [id number] Michelle Whitmore [id number] Michelle Whitmore 04/02/2025 1 [place] Michelle Whitmore [id number] Michelle Whitmore Notes Date Note Type Note Provider Name and Address Organization Details Recorded Time 11/30/2024 text/html Michelle Whitmore is a 74-year-old female who presents today for follow-up evaluation regarding her right foot. She would like to proceed with operative intervention. From 11/09/24 (AJ): for new patient evaluation regarding her right foot. She notes that she has a previous history of left foot correction by Dr. Justice in 2015 and overall did well after this. She [...] June Patel MD [address], [place], [address], [place] [facility] 12/04/2024 07:34:54 12/21/2024 text/html Date of Surgery: 12/08/24: Right first MTP fusion, correction 2nd and 3rd hammertoes with MTP capsulotomy, extensor tendon lengthening Michelle Whitmore is a 74-year-old female who presents today for her first post operative appointment. Her [...] drinks less than 1 drink a week. DIANA RAMSAY PA-C [address], [place], [address], [place] [facility] 12/21/2024 11:29:13 01/02/2025 text/html Date of Surgery: 12/08/24: Right first MTP fusion, correction 2nd and 3rd hammertoes with MTP capsulotomy, extensor tendon lengthening Michelle Whitmore is a 74-year-old female who presents today 3 and half weeks Postoperatively. She [...] left foot correction by Dr. Justice in 2015 and overall did well after this. She [...] drinks less than 1 drink a week. DIANA RAMSAY PA-C [address], [place], [address], [place] [facility] 01/02/2025 15:05:51 01/18/2025 text/html Date of Surgery: 12/08/24: Right first MTP fusion, correction 2nd and 3rd hammertoes with MTP capsulotomy, extensor tendon lengthening Michelle Whitmore is a 74-year-old female who presents today 6 weeks post operatively. She still [...] left foot correction by Dr. Justice in 2015 and overall did well after this. She [...] June Patel MD [address], [place], [address], [place] [facility] 01/22/2025 20:44:11 03/15/2025 text/html Date of Surgery: 12/08/24: Right [...] pain, calf swelling or fevers. From 11/30/24 ([facility]): follow-up evaluation regarding her right foot. She would like to proceed with operative intervention. From 11/09/24 ([facility]): for new patient evaluation regarding her right [...] June Patel MD [address], [place], [address], [place] [facility] 03/19/2025 06:38:11 OBGyn Episode No OBEpisode recorded.
--- OUTSIDE RECORDS SUMMARY | 2025-04-05 12:10 | XMS_ITS | Continuity of Care Document ---
Author Organization [place] [facility] Amelie Jones [place] Address [address] [place] [address] Care Team Providers Care Strip Cleaner Name Role Phone MIREYA LIANG Primary Care Provider MIREYA LIANG Referring Provider [phone] Assessment Encounter Date Assessment Date Assessment LastModified by Organization Details LastModified Time 01/18/2025 01/18/2025 She is doing well six weeks post operatively following her right 1st MTP fusion and 2-3 hammertoe correction. She may begin to transition to regular footwear as tolerated. She was encouraged to shower her foot and let it get wet. Plan to follow up in 6 weeks for repeat evaluation with repeat weightbearing right foot xrays Patient was seen and evaluated by Bhumi Ramsay PA-C in indirect conjunction with Documenting Provider: June Patel MD He/She agrees with history, physical examination, tests/diagnostic imaging, and treatment plan Not available 01/18/2025 11:51:27 Plan of Treatment Reminders Order Date Submit [...] foot, 3 or more view 2024 025 [facility], [address], [place], [address], 01/18/2025 12:44:54 Medication Orders None recorded . Patient TargetsNo targets recorded. Patient Instructions Encounter Date Encounter Id Patient Instructions Last Modified By Organization Details Last Modified Time 01/18/2025 [id number] views of the right foot obtained weightbearing on 01/18/2025 which demonstrates stable first MTP arthrodesis and correction of her 2nd and 3rd hammertoes. There is one remaining pin in the second toe [id number] Not available 01/18/2025 11:51:32 Reason for Referral None Reported. 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 Procedures Surgical History Date Name Laterality Status Provider Name and Address Organization Details Recorded Time 12/09/19 25 ORTHOPAEDIC SURGERY (SURG) completed Angelica Ignacio [facility] 12/11/2024 09:41:45 Imaging Results None recorded. Procedure Notes None recorded. Medical Equipment None Reported. Allergies Allergen ID Allergen Name Allergen Category Reaction Reaction Severity Criticality Documentation Date Start Date Code Code System Note Provider Name and Address Organization Details Recorded Time 23929 Substance with sulfonami de structure and antibacte rial mechanism of action (substanc e) medicatio n hives severe Not available 11/30/20241979 68351 8003 SNOMED Chance [place], [place] [facility] 11:27:07 Medications Name Sig Start [...] Updated DateTime 01/18/2025 160.02 cm 23.9 kg/m2 96532.[address] [facility] 01/18/2025 11:30:06 Social History None recorded. Functional Status None recorded. Mental Status None recorded. Family History Nothing Reported. Medical History No medical history recorded. Gynecological HistoryNo gynecological history recorded. Obstetrics History GPAL:G 0 P 0 0 0 0 Past Encounters Encounter ID Performer Location Encounter Start Date Encounter Closed Date Diagnosis/Indication Diagnosis SNOMED-CT Code Diagnosis ICD10 Code Diagnosis IMO Codes Diagnosis Note [id number] CRISTIAN ANNA [place] [id number] 12/21/2024 10:22:09 12/21/2024 11:23:34 Toe joint rigid 862252656 M20.21 9740996 Hammer toe 039899729 M20 .41 [id number] CRISTIAN ANNA [address] [address] 01/02/2025 14:33:43 01/02/2025 15:01:11 Postoperative visit 208496058 Z48.89 14972404 Toe joint rigid 25098040 4 M20.21 6781650 Hammer toe 982120206 M20 .41 [id number] CRISTIAN ANNA [address] [address] 01/18/2025 11:21:48 01/18/2025 11:51:01 Postoperative visit 377627100 Z48.89 24826133 Toe joint rigid 62228840 4 M20.21 1846486 Hammer toe 859669691 M20 .41 [id number] Health Concerns Section Related Observation LastModified by Organization Detai ls LastModified Time None Recorded Concern Status LastModified by Organization Details LastModified Time None Recorded Payers Encounter Date Sequence Insurance Name Policy Number Policy Key Covered Member ID Key Member ID Guarantor Name 01/18/2025 2 [place] [id number] Michelle Whitmore [id number] Michelle Whitmore 01/18/2025 1 [place]: [place] Michelle Whitmore [id number] Michelle Whitmore Notes Date Note Type Note Provider Name and Address Organization Details Recorded Time 01/18/2025 text/html Date of Surgery: 12/08/24: Right [...] June Patel MD [address], [place], [address], [place] [facility] 01/22/2025 20:44:11 OBGyn Episode No OBEpisode recorded.
--- OUTSIDE RECORDS SUMMARY | 2025-04-05 12:10 | XMS_ITS | Clinical Summary ---
Author Organization [facility] [address] [facility] Address [address] [place] [address] Phone Care Team Providers Care National Sales Name Role Phone Elma Calhoun MD Primary Care Provider [phone] Allergies Active Allergy Reactions Criticality Noted Date Comments Mold 08/21/2024 Sulfa (Sulfonamide Antibiotics) 07/23 HIves Medications traZODone [...] crush, chew, or split. 60 each 11 5 07/04/19 Active Active Problems Problem Noted Date Diagnosed Date Anxiety 08/16/2018 Gastroesophageal reflux disease without esophagi tis 08/16/2018 Pure hypercholesterolemia 08/16/2018 Surgical History Surgery Date Site/Laterality Comments FOOT [...] - Inhaled Oxygen Concentration - - Weight 60.8 kg (134 lb) 08/21/2024 11:30 AM EDT Height 160 cm (5' 3 ) 08/21/2024 11:30 AM EDT Body Mass Index 23.74 08/21/2024 11:30 AM EDT Plan of Treatment Health Maintenance Due Date Last Done Comments Zoster Vaccines (2 of 2) 03/31/2018 02/03/2018 Breast Cancer Screening 11/29/2020 11/29/2018, 11/22 Falls Risk Assessment 04/22/2022 Hepatitis C Screening 04/22/2022 Medicare Annual Wellness Visit 04/22/2022 Osteoporosis Screening (Bone Density Screening) 04/22/2022 Social Influencers of Health Screening 04/22/2022 Cholesterol Screening (Lipid Panel) 08/17/2023 08/16/2018 Depression Screening 05/24/2024 COVID-19 Vaccine ( season) 2025 01/31/2024, 02/15/2023, 02/09/2022, Additional history exists Influenza Vaccine (#1) 2025 , 02/15/2023, 03/04/2022, Additional history exists Colorectal Cancer Screening: Colonoscopy 02/23/2029 02/23/2019, 02/23/2019 DTaP,Tdap,and Td Vaccines (2 - Td or Tdap) 07/07/2033 07/07/2023 Pneumococcal Vaccine: 50+ Years Completed 07/07/2023, 06/21/2019 RSV Immunization Adult Patients Completed 08/12/2023 HIB Vaccines Aged Out No longer eligi [...] age to complete this topic Meningococcal B Vaccine Aged Out No l onger eligible based on patient's age to complete this topic RSV Immunization Patients Under 20 months Aged Out No longer eligible based on patient's age to complete this topic Varicella Vaccines Aged Out No longer eligible based on patient's age to complete this topic Procedures Procedure Name Priority Date/Time Associated Diagnosis Comments COLONOSCOPY Routine 02/23/2019 [facility] SCREENING DIGITAL Routine 11/29/2018 11:14 AM EDT Encounter for screening mammogram for malignant neoplasm of breast LIPID PANEL Routine 08/16/2018 from Last 3 Months or Most Recently Relevant to Health Maintenance Results * Colonoscopy (02/23/2019) Colonoscopy abnormal, abstracted Anatomical Region Laterality Modality Other us Historical Provider HEALTH MAINTENANCE Final Result * [facility] SCREENING DIGITAL (11/29/2018 11:14 AM EDT) Anatomical Region Laterality Modality Mammography 11/29/2018 8:55 AM EDT Narrative 11/29/2018 11:14 AM EDT [facility] Diagnostic Imaging Department [address] [place] [address] Patient: ANNE WHITMORE /Age/Sex: 1950 - 68 - F Unit#: [id number] Location/Status: SPDIMAM/REG CLI Mnemonic[facility] Ordering Physician: DUSTIN ROJO MD [facility] Screening Digital - 11/29/18912 EXAM: [facility] Screening Digital EXAM DATE AND [...] MLO projection. Computer aided detection with the Shout 7.2-H was employed. TISSUE DENSITY: b. There are scattered areas of fibroglandular density. FINDINGS: Minimal asymmetry and architectural distortion are seen in the posterior 10:00 position of the left breast, unchanged, consistent with surgical scar. No suspicious masses or grouped microcalcifications are seen. Dermal and vascular calcification is again noted. IMPRESSION: Stable mammographic appearance of the breasts. No evidence of malignancy is seen. A negative mammogram in the presence of a clinically suspicious palpable abnormality does not preclude the possibility of malignancy or alter the indications for biopsy. BI-RADS: Category 2: Benign RECOMMENDATION(S): 1: Routine screening mammogram BILATERAL in 1 year. [address]67, 48856 3342F, 7036F Dictating Physician: VIOLA NICHOLS MD Electronically Signed by: VIOLA NICHOLS MD Dic Date/Time: 11/29/18 1113 Sign date/Time: 11/29/18 1114 Procedure Note Viola Nichols - 05/13/2022 [facility] Diagnostic Imaging Department [address] [place] [address] Patient: TU WHITMORENOR /Age/Sex: 1950 - 68 - F Unit#: [id number] [facility]ing [facility] Ordering Physician: DUSTIN ROJO MD [facility] Screening Digital - 11/29/18 - 912 EXAM: [facility] Screening Digital EXAM DATE AND TIME: 11/29/2018 9:14 AM HISTORY: Screening. Excisional biopsy of the left breast in 1993,pathology benign. Paternal grandmother had breast carcinoma. COMPARISON: 11/26/17 (right), 11/22/17, 11/19/16, 02/13/15, 11/10/13 TECHNIQUE: CC and MLO views of both breasts were obtained using fullfield digital mammography. Bilateral digital breast tomosynthesis was performedin the MLO projection. Computer aided detection with the Shout 7.2-Hwas employed. TISSUE DENSITY: b. There are scattered areas of fibroglandular density. FINDINGS: Minimal asymmetry and architectural distortion are seen in the [id number] position of the left breast, unchanged, consistent [...] Routine screening mammogram BILATERAL in 1 year. [address]231, 66020 3342F, 7025F Dictating Physician: VIOLA NICHOLS MD [...] Recently Relevant to Health Maintenance Insurance MEDICARE [facility] Care Teams National Sales Relationship Specialty Start Date End Date Elma Calhoun MD [address] [place] [id number] PCP - General Internal Medicine 07/10/21
--- OUTSIDE RECORDS SUMMARY | 2025-04-05 12:10 | XMS_ITS | Clinical Summary ---
Author Organization [facility] Address [address] [place] [address] Care Team Providers Care Curriculum Writer Name Role Phone Elma Calhoun MD Primary Care Provider [phone] Allergies Active Allergy Reactions Criticality Noted Date [...] age to complete this topic Care Teams Curriculum Writer Relationship Specialty Start Date End Date Elma Calhoun MD [address] [address] PCP - General Internal Medicine 07/10/21
== END 2025-04-05 11:04 | disposition home or self-care (01) ==
LOC: HO.HPHYS 10:08
PROVIDERS: PCP Internal Medicine; Visit Provider Physical Medicine & Rehabilitation
DX: M54.16 Radiculopathy, lumbar region (principal); M48.062 Spinal stenosis, lumbar region with neurogenic claudication; M53.3 Sacrococcygeal disorders, not elsewhere classified
CPT/HCPCS: 99214; G2211

== ENCOUNTER → 2025-04-05 10:08 | Outpatient (BNVA) | payer MEDICARE, SELFPAY | PROVIDERS: PCP Internal Medicine; Visit Provider Physical Medicine & Rehabilitation | DX: M54.16 Radiculopathy, lumbar region (principal); M53.3 Sacrococcygeal disorders, not elsewhere classified; M48.062 Spinal stenosis, lumbar region with neurogenic claudication; Z79.82 Long term (current) use of aspirin | CPT/HCPCS: 99212 ==